=== PATIENT | female | born 1990 | race Caucasian/White ===

== ENCOUNTER 2024-02-12 11:40 | Emergency (ER) | payer MEDICAID, SELFPAY ==
--- NOTE | 2024-02-12 11:49 | XR_ITS ---
Examination: CT abdomen and pelvis without contrast. Coronal 3-D reconstructions. Sagittal 2-D reconstructions. Date and time of exam:February 12, 2024 1203 hours COMPARISON: December 04, 2023 INDICATIONS: Generalized abdominal pain and nausea today CTDI: vol (mGy): 23.8 DLP: (mGycm): 1574 Technique: Axial images of the abdomen have been obtained, 3 mm slice thickness Intravenous contrast material has not been administered. Low dose protocols were performed. One or more of the following dose reduction techniques were used; automated exposure control, adjustment of the mA and/or KV according to patient size, use of iterative reconstruction technique. Findings: Thickening of the gastric mucosa No focal liver or splenic lesion Absent gallbladder No pancreatic or adrenal mass Mild to moderate bilateral renal parenchymal scar formation Aorta normal size No bowel obstruction 10 mm fat-containing umbilical hernia Absent appendix No current colitis or enteritis pattern Anteverted uterus with no uterine or adnexal mass Contracted urinary bladder Mild osteopenia IMPRESSION: Gastritis pattern Mild to moderate renal parenchymal scar formation No nonspecific enteritis or colitis pattern
[2024-02-12 11:50] VITALS: BP 109/71; PULSE 95; RESP 18; TEMP 37.1; O2SAT 98
--- NOTE | 2024-02-12 12:03 | EDNOTE_ITS ---
ED Abdominal Pain RME/HPI General Chief Complaint: Fever Stated complaint: FEVER, ABD PAIN Time seen by provider: 02/12/24 11:45 Arrival date/time: 02/12/24 11:40 RME / HPI RME / HPI narrative: This section includes all my notes and documentations, including HPI, PE, MDM, Procedure Notes, and PLAN. Que Ron MD HPI: 33 year old female with a history of hypertension, diabetes, cervical cancer undergoing chemotherapy, s/p tubal ligation, recently diagnosed with ulcerative colitis presents to the ER with complaints of abdominal pain and feeling unwell for the past 24 hours. The abdominal pain is described as diffuse and crampy in nature, with no specific location or radiation. She reports a fever of 100.4F at home, along with nausea, but denies vomiting, diarrhea, or back pain. She notes that her last bowel movement was last night and was normal for her. She states that she last felt this way at the time of her ulcerative colitis diagnosis, and is concerned about a possible flare. She denies any recent changes in her diet or medications. No known sick contacts. No other complaints. ROS: Gastrointestinal: negative except as documented in HPI. Genitourinary: negative except as documented in HPI. Musculoskeletal: negative except as documented in HPI. Skin: negative except as documented in HPI. Neurological: negative except as documented in HPI. Physical Exam: General:? Alert and oriented.? No acute distress when remaining still. Eyes:? Conjunctivae and lids clear.? ENT:? No nasal congestion.? ? Neck:? Supple.? Heart:? RRR.? Lungs:? No respiratory distress.? Good air movement.? No rhonchi, wheezing, rales.?? Abdomen:? Soft mild epigastric tenderness.? Normal bowel sounds.? No distension.? No rebound or guarding.?? Back:? No CVA tenderness.?? Skin:? Warm and dry.?? Neuro:? Alert and oriented X 3.? I reviewed all diagnostic test results. My review of the abdominal CT report is gastritis. Blood tests unremarkable. At this point, diagnoses include gastritis. Prescribed famotidine and omeprazole and recommended more outpatient workup. Based on my best medical judgment, made decision no further evaluation or treatment indicated at this time. Patient understands and agrees to the discharge instructions customized and printed, see below. Discharge instructions from Dr. Ron: ?After evaluation, your symptoms are due to stomach ulcer (see attached handout).? There is no emergency such as appendicitis needing emergent surgery. ?To help heal the ulcer, take Omeprazole 40 mg every morning and Famotidine 40 mg at bedtime for 7 days then as needed. ?Zofran for nausea/vomiting.? Clear liquid diet for 24 hours.? Then slowly advance diet as tolerated. ?Avoid food and beverages that can trigger and worsen ulcers.? See attached handout. ?See a private doctor on 02/14/2024. Ask to review all test results and official radiology reports, to make sure you receive all necessary follow-ups and monitoring. Ask to help you get more care not available here in the ER.? Such as EGD or scoping the stomach, colonoscopy or scoping the colon, and a referral to see a welder assembler. ?Seek immediate medical care with worsening or with any concerns. Que Ron MD Related Data Home Medications ?Medication ?Instructions ?Recorded ?Confirmed metformin 500 mg tablet 500 mg PO BID 10/27/20 12/05/23 hydrochlorothiazide 12.5 mg tablet 12.5 mg PO QAM 11/08/22 12/05/23 lisinopril 10 mg tablet 10 mg PO QDAY 11/08/22 12/05/23 semaglutide 1 mg/dose (4 mg/3 mL) 1 mg subcut QWEEK 11/08/22 12/05/23 subcutaneous pen injector (Ozempic) atorvastatin 40 mg tablet 40 mg PO HS 12/05/23 12/05/23 Previous Rx's ?Medication ?Instructions ?Recorded aspirin 81 mg chewable tablet 81 mg PO QDAY #30 tabs 11/20/23 folic acid 1 mg tablet 1 mg PO QDAY 3 months #90 tabs 12/08/23 famotidine 40 mg tablet 40 mg PO QDAY #30 tabs 02/12/24 omeprazole 40 mg capsule,delayed 40 mg PO QDAY #30 caps 02/12/24 release ondansetron 4 mg disintegrating 4 mg PO TID PRN nausea and 02/12/24 tablet vomiting 5 days #10 tabs Allergies Allergy/AdvReac Type Severity Reaction Status Date / Time amoxicillin Allergy Severe Rash Verified 02/12/24 15:27 cephalexin Allergy Severe Rash Verified 02/12/24 15:27 adhesive tape Allergy Intermediate Rash Verified 02/12/24 15:27 bee venom protein (honey bee) Allergy Intermediate Anaphylaxis Verified 02/12/24 15:27 Review of Systems Review of Systems Systems Reviewed: All systems reviewed, normal except as documented Past Medical History Past Medical History CARDIAC: Positive Hypercholesterolemia and Hypertension RESPIRATORY: Positive Asthma GASTROINTESTINAL: Positive Gastrointestinal Disorders, Gall Bladder Disease and Obesity GENITOURINARY: Positive Genitourinary Disorders and Kidney Stones REPRODUCTIVE: Positive Previous Pregnancies ENDOCRINE: Positive Endocrine Disorders and Diabetes Mellitus Type 2 OTHER HISTORY: Positive Hospitalization, Blood Transfusions (per pt. 2014) and Cervical Cancer Family History FAMILY HISTORY: Positive Family Cardiac Disorders and Family Surgery Surgical History SURGICAL: Positive Arthroscopy, Tubal Ligation and Section Social History SMOKING STATUS: Never smoker SECOND HAND EXPOSURE: No SUBSTANCE USE: does not use ED Exam Narrative Physical exam: As noted in HPI Course Quality Measures none Orders Category Date Time Status CT abdomen pelvis wo con Stat Exams 02/12/24 11:49 Completed Amylase Stat Lab 02/12/24 11:58 Completed CBC Stat Lab 02/12/24 11:58 Completed CMP [Comprehensive Metabolic Panel] Stat Lab 02/12/24 11:58 Completed Lipase Stat Lab 02/12/24 11:58 Completed Magnesium Stat Lab 02/12/24 11:58 Completed Urine Culture Stat Lab 02/12/24 13:14 Ordered Vital Signs Vital signs: Vital Signs Temperature 98.8 F 02/12/24 11:50 Pulse Rate 95 02/12/24 11:50 Respiratory Rate 18 02/12/24 11:50 Blood Pressure 109/71 02/12/24 11:50 Pulse Oximetry (%) 98 02/12/24 11:50 Oxygen Delivery Method Room Air 02/12/24 11:50 Pulse ox is 98% on room air which is adequate. Abdominal Pain MDM MDM Narrative MDM Narrative:: Olga Ferrara am scribing for and in the presence of Dr. Ron. Patient data External records reviewed:: [facility] previous records (I reviewed admission from 12/04/2023 through 12/08/2023) Clinical information provided by:: patient Social determinants that could affect healthcare access:: none Patient has the following chronic illnesses:: hypertension, diabetes, cervical cancer undergoing chemotherapy, s/p tubal ligation, recently diagnosed with ulcerative colitis How is presenting disease/condition affected by chronic disease/condition?: exacerbated by Evaluation data The following diagnostics were reviewed and interpreted by me:: lab results and radiology exam(s) Lab and/or radiology exams considered but not ordered:: None Interpretation Summary: Gastritis Medications / Prescriptions Medications or Prescriptions considered but not ordered:: None Medication administrations:: None Consultations Consultation(s) initiated? (list below): No Diagnosis Differential diagnosis abdominal pain: abdominal pain, acute appendicitis, calculus of kidney, constipation, diverticulitis, endometriosis, gastroenteritis, pancreatitis, small bowel obstruction and other (Colitis) Most likely diagnosis given after review of the tests above:: Gastritis Admission Indicated Admission indicated?: not indicated Explain why admission is indicated or not indicated:: Does not meet admission criteria Admission Request Was there a request for admission?: No Disposition Plan Disposition Plan: Discharge Discharge Attestation Discharge Attestation: The patient and all family members were given an opportunity to ask questions and understood the discharge instructions. Discharge instructions specifically effects, indications for sooner follow up or return to the emergency department, and the expected course of current diagnosis. Patient condition: Stable Discharge Plan Plan Patient Disposition: HOME (Self Care) Prescriptions/Referrals Prescriptions/Med Rec: New famotidine 40 mg tablet 40 mg PO QDAY Qty: 30 0RF omeprazole 40 mg capsule,delayed release(DR/EC) 40 mg PO QDAY Qty: 30 0RF ondansetron 4 mg tablet,disintegrating 4 mg PO TID PRN (Reason: nausea and vomiting) 5 Days Qty: 10 0RF No Action metformin 500 mg Tablet 500 mg PO BID lisinopril 10 mg Tablet 10 mg PO QDAY hydrochlorothiazide 12.5 mg Tablet 12.5 mg PO QAM Ozempic 1 mg/dose (4 mg/3 mL) Pen Injector 1 mg SUBCUT QWEEK aspirin 81 mg tablet,chewable 81 mg PO QDAY Qty: 30 0RF atorvastatin 40 mg tablet 40 mg PO HS folic acid 1 mg Tablet 1 mg PO QDAY 90 Days Qty: 90 0RF Referrals: Mandy Negro FNP [Primary Care Provider] - In 1 week Problem List Clinical Impression: Stomach ulcer Patient/Caregiver Discharge Instructions Discharge Activity: activity as tolerated Education Materials: ED PEPTIC ULCER vs GASTRITIS Additional Instructions: Discharge instructions from Dr. Ron: ?After evaluation, your symptoms are due to stomach ulcer (see attached handout).? There is no emergency such as appendicitis needing emergent surgery. ?To help heal the ulcer, take Omeprazole 40 mg every morning and Famotidine 40 mg at bedtime for 7 days then as needed. ?Zofran for nausea/vomiting.? Clear liquid diet for 24 hours.? Then slowly adva nce diet as tolerated. ?Avoid food and beverages that can trigger and worsen ulcers.? See attached handout. ?See a private doctor on 02/14/2024. Ask to review all test results and official radiology reports, to make sure you receive all necessary follow-ups and monitoring. Ask to help you get more care not available here in the ER.? Such as EGD or scoping the stomach, colonoscopy or scoping the colon, and a referral to see a welder assembler. ?Seek immediate medical care with worsening or with any concerns. Print Language: Guinean Stand Alone Forms: Irish Award Info., Patient Portal Info Letter
[2024-02-12 12:28] LABS: Basophils # (Auto) 0.1 Thou/mm3 (0.0-0.2); Basophils % (Auto) 1 % (0-2.5); Eosinophils # (Auto) 0.1 Thou/mm3 (0.0-0.5); Eosinophils % (Auto) 1 % (0-10); Hematocrit 39.4 % (36.0-46.0); Hemoglobin 12.6 g/dL (12.0-16.0); Immature Granulocytes % (Auto) 0 % (0-0); Immature Granulocytes Auto 0.02 Thou/mm3 (0.00-0.00); Lymphocytes # (Auto) 2.3 Thou/mm3 (1.0-4.8); Lymphocytes % (Auto) 30 % (10-50); Mean Corpuscular Volume 84 fL (80-100); Monocytes # (Auto) 0.4 Thou/mm3 (0.0-0.8); Monocytes % (Auto) 5 % (0-12); Neutrophils # (Auto) 4.9 Thou/mm3 (1.8-7.7); Neutrophils % (Auto) 64 % (37-80); Nucleated Red Blood Cell % 0 /100 WBC (0); Platelet Count 303 Thou/mm3 (140-440); RDW Standard Deviation 45.4 fL (36.4-46.3); Red Blood Count 4.67 Miln/mm3 (4.00-5.20); White Blood Count 7.7 Thou/mm3 (3.6-11.0)
[2024-02-12 12:51] LABS: Alanine Aminotransferase 15 U/L (10-49); Albumin, Serum 4.6 gm/dL (3.5-5.0); Albumin/Globulin Ratio 1.8 (1.2-2.2); Alkaline Phosphatase 71 U/L (46-116); Amylase 74 U/L (30-118); Anion Gap 6 (7-16); Aspartate Amino Transferase 11 U/L (0-34); BUN/Creatinine Ratio 11 Ratio (12-20); Bilirubin,Total 0.6 mg/dL (0.3-1.2); Blood Urea Nitrogen 9 mg/dL (9-23); Carbon Dioxide 25.2 mMol/L (20.0-31.0); Chloride 108 mMol/L (98-107); Creatinine (Component) 0.8 mg/dL (0.6-1.3); Globulin 2.5 gm/dL (2.3-3.5); Glucose 102 mg/dL (74-106); Lipase 37 U/L (12-53); Magnesium 1.9 mg/dL (1.6-2.6); Osmolality,Calculated 276 (275-295); Sodium 139 mMol/L (136-145); Total Protein 7.1 gm/dL (5.7-8.2); eGFR > 60 See Note
== END 2024-02-12 13:52 | disposition home or self-care (01) ==
PROVIDERS: Emergency Provider Emergency Medicine; PCP Nurse Practitioner
DX: K25.9 Gastric ulcer, unspecified as acute or chronic, without hemorrhage or perforation (principal); C53.9 Malignant neoplasm of cervix uteri, unspecified; I10 Essential (primary) hypertension; E11.9 Type 2 diabetes mellitus without complications; Z98.51 Tubal ligation status; K51.90 Ulcerative colitis, unspecified, without complications
CPT/HCPCS: 36415; 74176; 80053; 82150; 83690; 83735; 85025; 87086; 99284

== ENCOUNTER 2024-03-25 12:15 | Day surgery (SDC) | payer MEDICAID, SELFPAY ==
[2024-02-12 15:28] VITALS: BMI 52.9
[2024-02-13 09:00] VITALS: BP 130/84; PULSE 94; RESP 19; TEMP 36.8; O2SAT 97; BMI 52.9
--- NOTE | 2024-02-13 09:19 | SUR.PREOP ---
pt cancelled per dr tobin. pt to call for reschedule for mar 11.
[2024-03-24 13:50] VITALS: BMI 53.7
[2024-03-24 17:12] LABS: Alanine Aminotransferase 15 U/L (10-49); Albumin, Serum 4.5 gm/dL (3.5-5.0); Albumin/Globulin Ratio 1.7 (1.2-2.2); Alkaline Phosphatase 86 U/L (46-116); Anion Gap 8 (7-16); Aspartate Amino Transferase 11 U/L (0-34); BUN/Creatinine Ratio 16 Ratio (12-20); Bilirubin,Total 0.4 mg/dL (0.3-1.2); Blood Urea Nitrogen 14 mg/dL (9-23); Calcium 9.3 mg/dL (8.3-10.6); Calcium (Corrected) 9.3 mg/dL (8.5-10.1); Carbon Dioxide 26.4 mMol/L (20.0-31.0); Chloride 105 mMol/L (98-107); Creatinine (Component) 0.9 mg/dL (0.6-1.3); Estimated Creatinine Clearance 140.5 mL/min (>60); Globulin 2.7 gm/dL (2.3-3.5); Glucose 92 mg/dL (74-106); Osmolality,Calculated 278 (275-295); Sodium 139 mMol/L (136-145); Total Protein 7.2 gm/dL (5.7-8.2); eGFR > 60 See Note
[2024-03-25] VITALS (14 sets, daily range): BP systolic 98–141; BP diastolic 71–107; PULSE 79–94; RESP 12–16; TEMP 36.2–36.9; O2SAT 95–100; BMI 52.9
[2024-03-25] MEDS: RINGERS LACTATED 500 ML 500 ML 20 ML IV (15:05)
--- NOTE | 2024-03-25 15:41 | SUR.PHASEII ---
1541: Pt. AAOx4, vitals stable, breathing unlabored, no complaint of pain or nausea, no dressing in place, no active bleed noted, report received from Meagan MONTEJO and MD Musa.
[2024-03-25] MEDS: ONDANSETRON INJ 2 MG/ML INJ 2 ML 4 MG IV (16:09)
--- NOTE | 2024-03-25 16:30 | SUR.PHASEII ---
1630: Gave report to Che Montalvo RN to resume care of pt. Pt. has some redness to cheeks and chest, waiting for MD Musa to assess pt. to see if she is ok to go home. Pt. passed gas, pt. ate some ice chips and bites of jello, gave discharge instructions to the pt. and her ride, both verbalized understanding and had no further questions.
--- NOTE | 2024-03-25 16:30 | SUR.PHASEII ---
8981 report received from Haylie MONTEJO
--- NOTE | 2024-03-25 16:31 | SUR.PHASEII ---
3727 anesthesia provider at bedside assessed patient due to previous RN assessing redness to face and upper chest, redness has subsided, anesthesia provider shared patient was okay to discharge home
--- NOTE | 2024-03-25 16:48 | SUR.PHASEII ---
0512 anesthesia provider medicated patient Zofran 4mg via IV, will monitor patients nausea
--- NOTE | 2024-03-25 16:56 | SUR.PHASEII ---
1749 patient continued to be nausea, anesthesia provider medicated patient with Reglan 10mg via IV, will monitor patient
[2024-03-25] MEDS: PROMETHAZINE INJ 12.5 MG in SODIUM CHLORIDE 0.9% 50 ML 2.5 MG IV (17:38)
--- NOTE | 2024-03-25 18:10 | SUR.PHASEII ---
1715 Dr. Musa at bedside assessing patient, patient continued to be nausea, dry heaving and shares she doesn't feel good, Dr. Musa states he would place an order for addition medication 1738 Phenergan 12.5mg via IV started per anesthesia order, will monitor patient 1800 medication administration completed, 1810 patient tolerating ice chips, will proceed with discharge
--- NOTE | 2024-03-25 18:20 | SUR.PHASEII ---
1820 Patient meets discharge criteria from recovery, awake and alert, breathing unlabored, vital signs stable, denies pain, patient eating ice chips with her nausea at a tolerable level, patient able to dress herself into her clothing, discharge instructions given to patient and her by previous nurse, patient voided in restroom prior to discharge, patient given all her belongings prior to discharge, transported via wheelchair and left in a private vehicle.
== END 2024-03-25 18:20 | disposition home or self-care (01) ==
LOC: S2EX 19:14
PROVIDERS: Anesthesiology; PCP Nurse Practitioner; Referring Provider Internal Medicine Gastroenterology; Visit Provider Internal Medicine Gastroenterology
PROC: 0DJD8ZZ Inspection of Lower Intestinal Tract, Via Natural or Artificial Opening Endoscopic (ICD-10-PCS; CPT 45378; principal; 2024-03-25 13:30)
PROC: (CPT 43239; 2024-03-25 13:30)
DX: D12.5 Benign neoplasm of sigmoid colon (principal); B96.81 Helicobacter pylori [H. pylori] as the cause of diseases classified elsewhere; K52.9 Noninfective gastroenteritis and colitis, unspecified; K64.9 Unspecified hemorrhoids; K62.1 Rectal polyp; K31.89 Other diseases of stomach and duodenum; K29.50 Unspecified chronic gastritis without bleeding
CPT/HCPCS: 45380; 36415; 80053; A4217; J2250; J2405; J2550; J2704; J3010; J3490; J7120

== ENCOUNTER 2024-04-20 14:06 | Emergency (ER) | payer MEDICAID, SELFPAY ==
[2024-04-20 14:07] VITALS: BMI 53.2
[2024-04-20 14:40] VITALS: BP 111/78; PULSE 98; RESP 18; TEMP 36.9; O2SAT 99
--- NOTE | 2024-04-20 14:45 | XR_ITS ---
Examination: PA lateral chest 2 views Technique: Upright PA lateral chest 2 views Exam date and time: April 20, 2024 1459 hrs. Indications: Shortness of breath chest pain one week, positive for RSV Findings: Normal heart size Lungs are clear. The osseous structures are intact Impression: No active disease
--- NOTE | 2024-04-20 15:23 | PD.EDSOB ---
ED SOB =RME/HPI General Chief Complaint: Shortness of Breath/Dyspnea Stated Complaint: DIFFICULTY BREATHING; +RSV ON SATURDAY Time Seen by Provider: 04/20/24 14:45 Arrival date/time: 04/20/24 14:06 34-year-old female presents to emergency department today saying that she is been ill since last Saturday with cough, congestion, runny nose and bodyaches patient reports that she had an RSV test done on Saturday which came back positive which she got her results for on Saturday. Patient reports no chest pain no shortness of breath patient does report cough and congestion Limitations: no limitations Related Data Home Medications ?Medication ?Instructions ?Recorded ?Confirmed hydrochlorothiazide 12.5 mg tablet 25 mg PO QAM 11/08/22 03/25/24 lisinopril 10 mg tablet 10 mg PO QDAY 11/08/22 03/25/24 omeprazole 40 mg capsule,delayed 20 mg PO QDAY 03/24/24 03/24/24 release Previous Rx's ?Medication ?Instructions ?Recorded benzonatate 100 mg capsule 100 mg PO TID #14 caps 04/20/24 prednisone 10 mg tablet 30 mg (3 x 10 mg) PO BID 3 days 04/20/24 #18 tabs Allergies Allergy/AdvReac Type Severity Reaction Status Date / Time amoxicillin Allergy Severe Rash Verified 04/20/24 14:11 cephalexin Allergy Severe Rash Verified 04/20/24 14:11 adhesive tape Allergy Intermediate Rash Verified 04/20/24 14:11 bee venom protein (honey bee) Allergy Intermediate Anaphylaxis Verified 04/20/24 14:11 Review of Systems Review of Systems Systems Reviewed: All systems reviewed, normal except as documented Constitutional Constitutional: Reports system reviewed and no additional complaints, except as documented, Denies fever(s) and Denies headache(s) Eyes Eyes: Reports system reviewed and no additional complaints, except as documented and Denies blurry vision ENT Ears, Nose, Mouth, and Throat: Reports system reviewed and no additional complaints, except as documented, Denies headache(s), Denies nasal congestion and Denies nasal discharge Cardiovascular Cardiovascular: Reports system reviewed and no additional complaints, except as documented, Denies chest pain and Denies dyspnea Respiratory Respiratory: Reports system reviewed and no additional complaints, except as documented, Reports chest congestion, Reports cough and Denies dyspnea Gastrointestinal Gastrointestinal: Reports system reviewed and no additional complaints, except as documented and Denies abdominal pain Integumentary/Breasts Skin/Breast: Reports system reviewed and no additional complaints, except as documented and Denies rash Neurologic Neurologic: Reports system reviewed and no additional complaints, except as documented, Reports as per HPI and Denies headache(s) Past Medical History Past Medical History NEUROLOGIC: Positive Neurological Disorders and Transient Ischemic Attacks (TIA); Negative Seizures CARDIAC: Positive Cardiac Disorders and Hypertension; Negative Hypercholesterolemia or Congestive Heart Failure RESPIRATORY: Positive Asthma; Negative Chronic Obstructive Pulmonary Disease (COPD) GASTROINTESTINAL: Positive Gastrointestinal Disorders, Gall Bladder Disease, Colitis, Ulcerative Colitis, Ulcer and Obesity; Negative Hepatitis or Colorectal Cancer GENITOURINARY: Positive Kidney Stones; Negative Genitourinary Disorders, Renal Disease or Prostate Cancer REPRODUCTIVE: Positive Previous Pregnancies; Negative Breast Cancer or Testicular Cancer MUSCULOSKELETAL: Positive Musculoskeletal Disorders and Arthritis; Negative Bone Cancer ENDOCRINE: Positive Endocrine Disorders and Diabetes Mellitus Type 2 (pre); Negative Diabetes Mellitus Type 1 HEMATOLOGIC: Negative Blood Disorders, Anemia or Sickle Cell Disease PSYCHO/SOCIAL: Positive Anxiety OTHER HISTORY: Positive Hospitalization; Negative Autoimmune Disease, Down Syndrome, Developmental Delay, Shingles, Falls, Blood Transfusions, Blood Transfusion Reaction, Anesthesia Reactions, Organ Transplant, Chemotherapy, Radiation Therapy, Hyperbaric Therapy, MRSA, VRSA, Vancomycin-Resistant Enterococci, Human Immunodeficiency Virus (HIV), Chicken Pox, Measles, Mumps, Rubella ([place] Measles), Pertussis, Clostridium Difficile, Cancer, Breast Cancer, Cervical Cancer, Colorectal Cancer, Lung Cancer, Ovarian Cancer, Prostate Cancer or Testicular Cancer Family History FAMILY HISTORY: Positive Family Cardiac Disorders and Family Surgery; Negative Family Psychiatric Problems, Family Respiratory Disorders, Family Gastrointestinal Problems, Family Cancer or Family Anesthesia Reaction Surgical History SURGICAL: Positive Arthroscopy (right knee x2), Tubal Ligation and Section (x3); Negative Organ Transplant Social History SMOKING STATUS: Never smoker SECOND HAND EXPOSURE: No SUBSTANCE USE: does not use ED Exam General Limitations: Present no limitations General appearance: Present alert and in no apparent distress Head Head exam: Present atraumatic, normocephalic and normal inspection Eye Eye exam: Present normal appearance, PERRL and EOMI; Absent conjunctival injection ENT ENT exam: Present normal exam, normal oropharynx and mucous membranes moist Neck Neck exam: Present normal inspection, full ROM and trachea midline Chest Chest inspection: Present normal inspection and symmetric chest wall rise Respiratory Respiratory exam: Present normal lung sounds bilaterally; Absent respiratory distress, wheezes, stridor, accessory muscle use or prolonged expiratory phase Cardiovascular Cardiovascular exam: Present regular rate, normal rhythm and normal heart sounds Abdominal Exam Abdominal exam: Present soft and normal bowel sounds; Absent distention, tenderness, guarding, rebound or rigidity Extremities Exam Extremities exam: Present normal inspection and full ROM Back Exam Back exam: Present normal inspection and full ROM Neurological Exam Neurological exam: Present alert, oriented X3 and CN II-XII intact Psychiatric Psychiatric exam: Present normal affect and normal mood Skin Skin exam: Present warm, dry, intact and normal color Course Quality Measures none Orders Category Date Time Status XR chest 2V Stat Exams 04/20/24 14:45 Completed Vital Signs Vital signs: Vital Signs Temperature 98.5 F 04/20/24 14:40 Pulse Rate 98 04/20/24 14:40 Respiratory Rate 18 04/20/24 14:40 Blood Pressure 111/78 04/20/24 14:40 Pulse Oximetry (%) 99 04/20/24 14:40 Oxygen Delivery Method Room Air 04/20/24 14:40 O2 saturation 99% room air within normal limits Shortness of Breath / Dyspnea MDM Narrative MDM Narrative:: 34-year-old female presents to the emergency department today saying that she is been ill since last Saturday with cough, congestion, runny nose and bodyaches patient reports that she had an RSV test done on Saturday which came back positive which she got her results for on Saturday. Patient reports no chest pain no shortness of breath patient does report cough and congestion Clinically patient is well-appearing patient does not appear ill or toxic and in no acute distress patient is no tachypnea or dyspnea no increased work of breathing lungs auscultated lungs are clear to auscultation Chest x-ray obtained no acute pneumonic infiltrates noted Patient discharged home in no distress to follow-up with primary care doctor in the next 24 to 48 hours and for any worsening symptoms to return to the ER immediately Patient data External records reviewed:: [facility] previous records Clinical information provided by:: patient Social determinants that could affect healthcare access:: none Patient has the following chronic illnesses:: See history How is presenting disease/condition affected by chronic disease/condition?: uneffected by Evaluation data The following diagnostics were reviewed and interpreted by me:: radiology exam(s) Lab and/or radiology exams considered but not ordered:: Radiology obtain Interpretation Summary: Reviewed by me Medications / Prescriptions Medications or Prescriptions considered but not ordered:: Given Rx Medication administrations:: Rx given Consultations Consultation(s) initiated? (list below): No Diagnosis Shortness of Breath Differential Diagnosis: acute exacerbation of chronic obstructive airways disease, congestive heart failure, community acquired pneumonia, asthma with exacerbation and pulmonary embolism Most likely diagnosis given after review of the tests above:: URI Admission Indicated Admission indicated?: not indicated Admission Request Was there a request for admission?: No Disposition Plan Disposition Plan: Discharge Discharge Attestation Discharge Attestation: The patient and all family members were given an opportunity to ask questions and understood the discharge instructions. Discharge instructions specifically effects, indications for sooner follow up or return to the emergency department, and the expected course of current diagnosis. Patient condition: Stable Discharge Plan Plan Patient Disposition: HOME (Self Care) Disposition Comment: Stable Prescriptions/Referrals Prescriptions/Med Rec: New prednisone 10 mg tablet 30 mg PO BID 3 Days Qty: 18 0RF benzonatate 100 mg capsule 100 mg PO TID Qty: 14 0RF No Action lisinopril 10 mg Tablet 10 mg PO QDAY hydrochlorothiazide 12.5 mg Tablet 25 mg PO QAM omeprazole 40 mg capsule,delayed release(DR/EC) 20 mg PO QDAY Problem List Clinical Impression: Upper respiratory infection Patient/Caregiver Discharge Instructions Education Materials: ED URI, Viral, No Abx (Adult) Additional Instructions: Please follow up with your primary care doctor in the next 24-48hrs for any worsening symptoms return here immediately Print Language: Maltese Stand Alone Forms: Irish Award Info., Patient Portal Info Letter CASIE/NORMA Supervising Physician PA/NORMA Supervising Physician: dr polanco
== END 2024-04-20 15:30 | disposition home or self-care (01) ==
LOC: SERX 15:32
PROVIDERS: Emergency Provider Emergency Medicine; PCP Nurse Practitioner
DX: J06.9 Acute upper respiratory infection, unspecified (principal)
CPT/HCPCS: 71046; 99283

== ENCOUNTER 2024-05-14 13:48 | Emergency (ER) | payer MEDICAID, SELFPAY ==
[2024-05-14 13:49] VITALS: BMI 54.8
[2024-05-14 14:11] VITALS: BP 134/85; PULSE 118; RESP 20; TEMP 37.4; O2SAT 99
--- NOTE | 2024-05-14 14:13 | EKG_ITS ---
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
--- NOTE | 2024-05-14 14:13 | XR_ITS ---
Examination: PA chest single view. Technique: Upright PA chest single view Exam date and time: May 14, 2024 1455 hrs. Indications: History pneumonia on chest pain coughing last night. Findings: Normal heart size Subtle opacity left base retrocardiac Right lung clear Impression: Suspicious for left base retrocardiac pneumonia, clinical correlation advised
--- NOTE | 2024-05-14 14:14 | EDNOTE_ITS ---
<Statement entered by Cathy Jimenez MD - 05/14/24 16:08> As co-signing physician, I was present and available for consult prn. I concur with the plan and care as documented by the midlevel provider. ED General RME/HPI General Chief complaint: Chest Pain Stated complaint: CHEST PAIN Time Seen by Provider: 05/14/24 14:15 Arrival date/time: 05/14/24 13:48 CC: Left anterior site-specific chest pain HPI intermittent since early this morning no prior history of similar present denies shortness of breath difficulty breathing headache nausea vomiting or diarrhea. No OTC medicines taken currently the pain is absent Related Data Home Medications ?Medication ?Instructions ?Recorded ?Confirmed hydrochlorothiazide 12.5 mg tablet 25 mg PO QAM 03/25/24 lisinopril 10 mg tablet 10 mg PO QDAY 11/08/2203/25 omeprazole 40 mg capsule,delayed 20 mg PO QDAY 5 03/24/24 release Previous Rx's ?Medication ?Instructions ?Recorded benzonatate 100 mg capsule 100 mg PO TID #14 caps 04/04 09/25 Allergies Allergy/AdvReac Type Severity Reaction Status Date / Time amoxicillin Allergy Severe Rash Verified 05/14/24 13:52 cephalexin Allergy Severe Rash Verified 05/14/24 13:52 adhesive tape Allergy Intermediate Rash Verified 05/14/24 13:52 bee venom protein (honey bee) Allergy Intermediate Anaphylaxis Verified 05/14/24 13:52 Review of Systems Review of Systems Narrative Review of Systems: GEN: No fever, no chills, no weight loss EYES: No discharge, no visual changes, no pain HEENT: No ear pain, no congestion, no sore throat PULM: No shortness of breath, no cough, no congestion CV: + chest pain, no dyspnea on exertion, no palpitations GI: No nausea, no vomiting, no diarrhea, no pain, no constipation : No frequency, no urgency, no dysuria MUSC/SKEL: No joint pain, no back pain SKIN: No rash PSYCH: No hallucinations, no depression HEME/LYMPH: No easy bleeding or bruising tendencies NEURO: No weakness, no headache Past Medical History Past Medical History NEUROLOGIC: Positive Neurological Disorders and Transient Ischemic Attacks (TIA); Negative Seizures CARDIAC: Positive Cardiac Disorders and Hypertension; Negative Hypercholesterolemia or Congestive Heart Failure RESPIRATORY: Positive Asthma; Negative Chronic Obstructive Pulmonary Disease (COPD) GASTROINTESTINAL: Positive Gastrointestinal Disorders, Gall Bladder Disease, Colitis, Ulcerative Colitis, Ulcer and Obesity; Negative Hepatitis or Colorectal Cancer GENITOURINARY: Positive Kidney Stones; Negative Genitourinary Disorders, Renal Disease or Prostate Cancer REPRODUCTIVE: Positive Previous Pregnancies; Negative Breast Cancer or Testicular Cancer MUSCULOSKELETAL: Positive Musculoskeletal Disorders and Arthritis; Negative Bone Cancer ENDOCRINE: Positive Endocrine Disorders and Diabetes Mellitus Type 2 (pre); Negative Diabetes Mellitus Type 1 HEMATOLOGIC: Negative Blood Disorders, Anemia or Sickle Cell Disease PSYCHO/SOCIAL: Positive Anxiety OTHER HISTORY: Positive Hospitalization; Negative Autoimmune Disease, Down Syndrome, Developmental Delay, Shingles, Falls, Blood Transfusions, Blood Transfusion Reaction, Anesthesia Reactions, Organ Transplant, Chemotherapy, Radiation Therapy, Hyperbaric Therapy, MRSA, VRSA, Vancomycin-Resistant Enterococci, Human Immunodeficiency Virus (HIV), Chicken Pox, Measles, Mumps, Rubella (Nepali Measles), Pertussis, Clostridium Difficile, Cancer, Breast Cancer, Cervical Cancer, Colorectal Cancer, Lung Cancer, Ovarian Cancer, Prostate Cancer or Testicular Cancer Family History FAMILY HISTORY: Positive Family Cardiac Disorders and Family Surgery; Negative Family Psychiatric Problems, Family Respiratory Disorders, Family Gastrointestinal Problems, Family Cancer or Family Anesthesia Reaction Surgical History SURGICAL: Positive Arthroscopy (right knee x2), Tubal Ligation and Section (x3); Negative Organ Transplant Social History SMOKING STATUS: Never smoker SECOND HAND EXPOSURE: No SUBSTANCE USE: does not use ED Exam Narrative Physical exam: [General: Morbidly obese anxious, but not in any acute distress Head normocephalic HEENT: Within acceptable limits Neck is supple nontender Chest equal chest rise nontender to palpation Respiratory: Clear to auscultation no wheezes crackles or rubs CV: Rate rhythm is regular no murmurs rubs or clicks Abdomen is grossly distended secondary to body habitus soft nontender no masses positive bowel sounds all 4 quadrants Back: No CVA tenderness no spinous process tenderness from cervical spine thoracic and lumbar spine Skin: Intact no petechiae rash induration ulceration or crepitus Extremities: Moving all extremity against resistance cap refill less than 2 seconds neurosensory intact Neuro: Awake alert oriented x3 Glascow coma 15 no focal deficits] Course Quality Measures none Orders Category Date Time Status EKG (ED ONLY) *Do not use* NOW Care 05/14/24 14:13 Completed EKG (ED Only) Stat Exams 05/14/24 14:13 Draft XR chest 1V Stat Exams 05/14/24 14:13 Taken Vital Signs Vital signs: Vital Signs Temperature 99.4 F 05/14/24 14:11 Pulse Rate 118 H 05/14/24 14:11 Respiratory Rate 20 05/14/24 14:11 Blood Pressure 134/85 H 05/14/24 14:11 Pulse Oximetry (%) 99 05/14/24 14:11 Oxygen Delivery Method Room Air 05/14/24 14:11 [facility] Patient data External records reviewed:: [facility] previous records Clinical information provided by:: patient Social determinants that could affect healthcare access:: none Patient has the following chronic illnesses:: Morbid obesity How is presenting disease/condition affected by chronic disease/condition?: uneffected by Evaluation data The following diagnostics were reviewed and interpreted by me:: radiology exam(s) and EKG tracing(s) Lab and/or radiology exams considered but not ordered:: EKG performed at 14 3023 shows a ventricular rate of 118 MN interval 129 QRS of 82 QTc of 287 this is a tachycardia Chest x-ray is negative for any acute finding requires emergent or immediate intervention as interpreted by me. Interpretation Summary: Chest pain Medications Medications considered but not ordered:: None Medication administrations:: None Consultations Consultation(s) initiated? (list below): No Diagnosis Differential Diagnosis ED Complaint MDM: ACS [place] pneumonia Most likely diagnosis given after review of the tests above:: Chest pain probable long car Admission Indicated Admission indicated?: not indicated Explain why admission is indicated or not indicated:: Stable for outpatient follow-up Admission Request Was there a request for admission?: No Disposition Plan Disposition Plan: Discharge Discharge Attestation Discharge Attestation: The patient and all family members were given an opportunity to ask questions and understood the discharge instructions. Discharge instructions specifically effects, indications for sooner follow up or return to the emergency department, and the expected course of current diagnosis. Patient condition: Stable Medical Decision Making Differential Diagnosis Differential Diagnosis: ACS [place] pneumonia Discharge Plan Plan Patient Disposition: HOME (Self Care) Patient condition on transfer: Stable Prescriptions/Referrals Prescriptions/Med Rec: No Action lisinopril 10 mg Tablet 10 mg PO QDAY hydrochlorothiazide 12.5 mg Tablet 25 mg PO QAM omeprazole 40 mg capsule,delayed release(DR/EC) 20 mg PO QDAY benzonatate 100 mg capsule 100 mg PO TID Qty: 14 0RF Referrals: Mandy Negro FNP [Primary Care Provider] - In 1 week Problem List Clinical Impression: Chest pain Patient/Caregiver Discharge Instructions Other Activity Instructions:: This chest pain is more than likely not cardiac related. I I suspect it is in the chest wall. Take ibuprofen or Tylenol for pain follow-up with your primary care provider if there is worsening of symptoms return the emergency room medially for further evaluation. Education Materials: ED Chest Pain, Noncardiac Print Language: Indonesian Stand Alone Forms: Irish Award Info., Work/School Release, Patient Portal Info Letter CASIE/NORMA Supervising Physician CASIE/NORMA Supervising Physician: Syed Guillen ENP
== END 2024-05-14 16:33 | disposition home or self-care (01) ==
PROVIDERS: Emergency Provider Emergency Medicine; PCP Nurse Practitioner
DX: R07.89 Other chest pain (principal)
CPT/HCPCS: 71045; 93005; 99283

== ENCOUNTER → 2024-05-27 | Outpatient (CLI) | payer MEDICAID, SELFPAY ==
--- NOTE | 2024-05-27 11:41 | XR_ITS ---
Examination: PA lateral chest 2 views TECHNIQUE: Upright PA lateral chest 2 views Exam date and time: May 27, 2024 at 1157 hours Comparison May 14, 2024 INDICATIONS: Coughing shortness of breath, history pneumonia left base on chest film May 14, 2024 FINDINGS: Pneumonia left base has cleared No current pneumonia Normal heart size IMPRESSION: Pneumonia left base has cleared
== END | disposition home or self-care (01) ==
LOC: SDIM 11:30
PROVIDERS: PCP Nurse Practitioner; Referring Provider Nurse Practitioner; Visit Provider Nurse Practitioner
DX: J18.9 Pneumonia, unspecified organism (principal); R05.3 Chronic cough
CPT/HCPCS: 71046

== ENCOUNTER 2024-05-28 10:02 | Emergency (ER) | payer MEDICAID, SELFPAY ==
[2024-05-28 10:26] VITALS: BP 137/88; PULSE 88; RESP 18; TEMP 36.8; O2SAT 96; BMI 54.8
--- NOTE | 2024-05-28 10:29 | PD.EDLOWEX ---
Lower Extremity Injury RME/HPI General Chief Complaint: Extremity Injury, Lower Stated Complaint: LEFT HIP SWELLING Time Seen by Provider: 05/28/24 10:15 Arrival date/time: 05/28/24 10:02 34-year-old female presents to the emergency department day for complaints of a bruise to her left upper leg patient does not remember any direct trauma patient is ambulatory Limitations: no limitations Related Data Home Medications ?Medication ?Instructions ?Recorded ?Confirmed hydrochlorothiazide 12.5 mg tablet 25 mg PO QAM 11/08/22 03/25/24 lisinopril 10 mg tablet 10 mg PO QDAY 11/08/22 03/25/24 omeprazole 40 mg capsule,delayed 20 mg PO QDAY 03/24/24 03/24/24 release Previous Rx's ?Medication ?Instructions ?Recorded benzonatate 100 mg capsule 100 mg PO TID #14 caps 04/20/24 ibuprofen 800 mg tablet 800 mg PO TID PRN pain #30 tabs 05/28/24 Allergies Allergy/AdvReac Type Severity Reaction Status Date / Time amoxicillin Allergy Severe Rash Verified 05/28/24 10:06 cephalexin Allergy Severe Rash Verified 05/28/24 10:06 adhesive tape Allergy Intermediate Rash Verified 05/28/24 10:06 bee venom protein (honey bee) Allergy Intermediate Anaphylaxis Verified 05/28/24 10:06 Review of Systems Review of Systems Systems Reviewed: All systems reviewed, normal except as documented Constitutional Constitutional: Reports system reviewed and no additional complaints, except as documented, Denies fever(s) and Denies headache(s) Eyes Eyes: Reports system reviewed and no additional complaints, except as documented and Denies blurry vision ENT Ears, Nose, Mouth, and Throat: Reports system reviewed and no additional complaints, except as documented, Denies headache(s), Denies nasal congestion and Denies nasal discharge Cardiovascular Cardiovascular: Reports system reviewed and no additional complaints, except as documented, Denies chest pain and Denies dyspnea Respiratory Respiratory: Reports system reviewed and no additional complaints, except as documented, Denies chest congestion, Denies cough and Denies dyspnea Gastrointestinal Gastrointestinal: Reports system reviewed and no additional complaints, except as documented and Denies abdominal pain Integumentary/Breasts Skin/Breast: Reports system reviewed and no additional complaints, except as documented, Denies rash and Reports other (Bruise left leg) Neurologic Neurologic: Reports system reviewed and no additional complaints, except as documented, Reports as per HPI and Denies headache(s) Past Medical History Past Medical History NEUROLOGIC: Positive Neurological Disorders and Transient Ischemic Attacks (TIA); Negative Seizures CARDIAC: Positive Cardiac Disorders and Hypertension; Negative Hypercholesterolemia or Congestive Heart Failure RESPIRATORY: Positive Asthma; Negative Chronic Obstructive Pulmonary Disease (COPD) GASTROINTESTINAL: Positive Gastrointestinal Disorders, Gall Bladder Disease, Colitis, Ulcerative Colitis, Ulcer and Obesity; Negative Hepatitis or Colorectal Cancer GENITOURINARY: Positive Kidney Stones; Negative Genitourinary Disorders, Renal Disease or Prostate Cancer REPRODUCTIVE: Positive Previous Pregnancies; Negative Breast Cancer or Testicular Cancer MUSCULOSKELETAL: Positive Musculoskeletal Disorders and Arthritis; Negative Bone Cancer ENDOCRINE: Positive Endocrine Disorders and Diabetes Mellitus Type 2 (pre); Negative Diabetes Mellitus Type 1 HEMATOLOGIC: Negative Blood Disorders, Anemia or Sickle Cell Disease PSYCHO/SOCIAL: Positive Anxiety OTHER HISTORY: Positive Hospitalization; Negative Autoimmune Disease, Down Syndrome, Developmental Delay, Shingles, Falls, Blood Transfusions, Blood Transfusion Reaction, Anesthesia Reactions, Organ Transplant, Chemotherapy, Radiation Therapy, Hyperbaric Therapy, MRSA, VRSA, Vancomycin-Resistant Enterococci, Human Immunodeficiency Virus (HIV), Chicken Pox, Measles, Mumps, Rubella (Amharic Measles), Pertussis, Clostridium Difficile, Cancer, Breast Cancer, Cervical Cancer, Colorectal Cancer, Lung Cancer, Ovarian Cancer, Prostate Cancer or Testicular Cancer Family History FAMILY HISTORY: Positive Family Cardiac Disorders and Family Surgery; Negative Family Psychiatric Problems, Family Respiratory Disorders, Family Gastrointestinal Problems, Family Cancer or Family Anesthesia Reaction Surgical History SURGICAL: Positive Arthroscopy (right knee x2), Tubal Ligation and Section (x3); Negative Organ Transplant Social History SMOKING STATUS: Never smoker SECOND HAND EXPOSURE: No SUBSTANCE USE: does not use ED Exam General Limitations: Present no limitations General appearance: Present alert and in no apparent distress Head Head exam: Present atraumatic Eye Eye exam: Present normal appearance, PERRL and EOMI ENT ENT exam: Present normal exam, normal oropharynx and mucous membranes moist Neck Neck exam: Present normal inspection, full ROM and trachea midline Chest Chest inspection: Present normal inspection and symmetric chest wall rise Respiratory Respiratory exam: Present normal lung sounds bilaterally Cardiovascular Cardiovascular exam: Present regular rate, normal rhythm and normal heart sounds Abdominal Exam Abdominal exam: Present soft and normal bowel sounds Extremities Exam Extremities exam: Present full ROM, tenderness, normal capillary refill and other (Superficial bruise left upper leg) Back Exam Back exam: Present normal inspection and full ROM Neurological Exam Neurological exam: Present alert, oriented X3 and CN II-XII intact Psychiatric Psychiatric exam: Present normal affect and normal mood Skin Skin exam: Present warm, dry, intact and normal color Course Quality Measures none Vital Signs Vital signs: Vital Signs Temperature 98.3 F 05/28/24 10:26 Pulse Rate 88 05/28/24 10:26 Respiratory Rate 18 05/28/24 10:26 Blood Pressure 137/88 H 05/28/24 10:26 Pulse Oximetry (%) 96 05/28/24 10:26 Oxygen Delivery Method Room Air 05/28/24 10:26 O2 saturation 98% on room air within norm limits Extremity Injury, Lower MDM Narrative MDM Narrative:: 34-year-old female presents to the emergency department day for complaints of a bruise to her left upper leg patient does not remember any direct trauma patient is ambulatory On exam patient well-appearing patient does not appear ill or toxic patient has bruising left upper leg Patient discharged home in no distress to follow-up with primary care doctor in the next 24 to 48 hours and for any worsening symptoms to return to the ER immediately Patient data External records reviewed:: [facility] previous records Clinical information provided by:: patient Social determinants that could affect healthcare access:: none Patient has the following chronic illnesses:: None How is presenting disease/condition affected by chronic disease/condition?: no chronic disease Evaluation data The following diagnostics were reviewed and interpreted by me:: other (specify) Lab and/or radiology exams considered but not ordered:: consider not ordered Interpretation Summary: N/A Medications / Prescriptions Medications or Prescriptions considered but not ordered:: Given Medication administrations:: Given Consultations Consultation(s) initiated? (list below): No Diagnosis Extremity Injury, Lower Differential Diagnosis: other Most likely diagnosis given after review of the tests above:: Consider not ordered Admission Indicated Admission indicated?: not indicated Explain why admission is indicated or not indicated:: N/A Admission Request Was there a request for admission?: No Disposition Plan Disposition Plan: Discharge Discharge Attestation Discharge Attestation: The patient and all family members were given an opportunity to ask questions and understood the discharge instructions. Discharge instructions specifically effects, indications for sooner follow up or return to the emergency department, and the expected course of current diagnosis. Patient condition: Stable Discharge Plan Plan Patient Disposition: HOME (Self Care) Disposition Comment: Stable Prescriptions/Referrals Prescriptions/Med Rec: New ibuprofen 800 mg tablet 800 mg PO TID PRN (Reason: pain) Qty: 30 0RF No Action lisinopril 10 mg Tablet 10 mg PO QDAY hydrochlorothiazide 12.5 mg Tablet 25 mg PO QAM omeprazole 40 mg capsule,delayed release(DR/EC) 20 mg PO QDAY benzonatate 100 mg capsule 100 mg PO TID Qty: 14 0RF Problem List Clinical Impression: Hip pain, left Patient/Caregiver Discharge Instructions Education Materials: ED Hip Strain Additional Instructions: Please follow up with your primary care doctor in the next 24-48hrs for any worsening symptoms return here immediately Print Language: Tristanian Stand Alone Forms: Irish Award Info., Patient Portal Info Letter PA/SENIOR CYTOTECHNOLOGIST Supervising Physician PA/SENIOR CYTOTECHNOLOGIST Supervising Physician: dr [email or web address]
== END 2024-05-28 10:35 | disposition home or self-care (01) ==
LOC: SERX 10:36
PROVIDERS: Emergency Provider Emergency Medicine; PCP Nurse Practitioner
DX: S70.12XA Contusion of left thigh, initial encounter (principal); X58.XXXA Exposure to other specified factors, initial encounter
CPT/HCPCS: 99281

== ENCOUNTER 2024-09-06 22:18 | Emergency (ER) | payer MEDICAID, SELFPAY ==
[2024-09-06 22:19] VITALS: BMI 54.8
--- NOTE | 2024-09-06 22:37 | XR_ITS ---
Examination: CT abdomen and pelvis without contrast. Coronal 3-D reconstructions. Sagittal 2-D reconstructions. Date and time of exam:September 07, 2024, 0146 hours INDICATIONS: Abdominal pain beginning 3 days ago CTDI: vol (mGy): 22.1 DLP: (mGycm): 1361 Technique: Axial images of the abdomen have been obtained, 3 mm slice thickness Intravenous contrast material has not been administered. Low dose protocols were performed. One or more of the following dose reduction techniques were used; automated exposure control, adjustment of the mA and/or KV according to patient size, use of iterative reconstruction technique. Findings: No focal liver or splenic lesions Absent gallbladder No pancreatic or adrenal mass No renal or ureteral calculi, no hydronephrosis. Absent appendix No bowel obstruction 28 mm right ovarian cyst Bladder is intact Osseous structures intact IMPRESSION: No acute process in the abdomen or pelvis
[2024-09-06 22:38] VITALS: BP 120/86; PULSE 95; RESP 20; TEMP 37.2; O2SAT 99
[2024-09-06 23:39] LABS: Basophils # (Auto) 0.1 Thou/mm3 (0.0-0.2); Basophils % (Auto) 1 % (0-2.5); Eosinophils # (Auto) 0.2 Thou/mm3 (0.0-0.5); Eosinophils % (Auto) 3 % (0-10); Hematocrit 37.3 % (36.0-46.0); Hemoglobin 12.3 g/dL (12.0-16.0); Immature Granulocytes Auto 0.01 Thou/mm3 (0.00-0.00); Lymphocytes # (Auto) 2.9 Thou/mm3 (1.0-4.8); Lymphocytes % (Auto) 34 % (10-50); Mean Corpuscular HGB Conc 33.0 g/dl (31.0-37.0); Mean Corpuscular Hemoglobin 27.4 pg (25.0-35.0); Mean Corpuscular Volume 83 fL (80-100); Monocytes # (Auto) 0.4 Thou/mm3 (0.0-0.8); Monocytes % (Auto) 5 % (0-12); Neutrophils # (Auto) 5.0 Thou/mm3 (1.8-7.7); Neutrophils % (Auto) 58 % (37-80); Nucleated Red Blood Cell # 0.00 Thou/mm3 (0.00-0.00); Nucleated Red Blood Cell % 0 /100 WBC (0); Platelet Count 270 Thou/mm3 (140-440); RDW Standard Deviation 42.5 fL (36.4-46.3); Red Blood Count 4.49 Miln/mm3 (4.00-5.20); White Blood Count 8.6 Thou/mm3 (3.6-11.0)
[2024-09-06 23:47] LABS: Alanine Aminotransferase 15 U/L (10-49); Albumin, Serum 4.0 gm/dL (3.5-5.0); Albumin/Globulin Ratio 1.6 (1.2-2.2); Alkaline Phosphatase 68 U/L (46-116); Anion Gap 10 (7-16); Aspartate Amino Transferase 13 U/L (0-34); BUN/Creatinine Ratio 13 Ratio (12-20); Bilirubin,Total 0.3 mg/dL (0.3-1.2); Blood Urea Nitrogen 10 mg/dL (9-23); Calcium 8.7 mg/dL (8.3-10.6); Calcium (Corrected) 8.7 mg/dL (8.5-10.1); Carbon Dioxide 23.0 mMol/L (20.0-31.0); Chloride 111 mMol/L (98-107); Creatinine (Component) 0.8 mg/dL (0.6-1.3); Estimated Creatinine Clearance 158.6 mL/min (>60); Globulin 2.5 gm/dL (2.3-3.5); Glucose 105 mg/dL (74-106); Lipase 42 U/L (12-53); Osmolality,Calculated 285 (275-295); Potassium 3.9 mMol/L (3.4-5.1); Sodium 144 mMol/L (136-145); Total Protein 6.5 gm/dL (5.7-8.2); eGFR > 60 See Note
[2024-09-07] LABS: Collection Type, Urine Clean Catch
[2024-09-07 00:04] LABS: Bilirubin,Urine Negative (Negative); Blood,Urine Negative (Negative); Clarity,Urine Clear (Clear/Hazy); Color,Urine Lt-Yellow (Lt Yel-Yel); Glucose, Urine Negative (Negative); Ketones,Urine Negative (Negative); Leukocyte Esterase,Urine Negative (Negative); Nitrite,Urine Negative (Negative); PH,Urine 5.0 (5.0-7.0); Protein,Urine Negative (Neg - Trace); RBC,Urine 2 /hpf (0-3); Specific Gravity,Urine 1.031 (1.001-1.035); Squamous Epithelial Cell,Urine 3 /hpf (0-5); Urobilinogen,Urine Negative mg/dL (0.0-1.0); WBC,Urine 1 /hpf (0-5)
[2024-09-07 00:05] LABS: HCG Qualitative,Urine Negative
--- NOTE | 2024-09-07 03:37 | PRELIM_ITS ---
CT scan of the abdomen and pelvis without intravenous contrast (axial sections with sagittal and coronal reformats) September 07, 2024 0146 hours Clinical History: abd pain Comparison: No prior study is available for comparison. Findings: The lung bases are clear. The gallbladder is surgically absent. The liver, pancreas, spleen, kidneys and adrenals are unremarkable on this noncontrast study. No evidence of bowel obstruction.The appendix is not visualized and may be surgically absent. There is no mesenteric or retroperitoneal adenopathy. The urinary bladder is unremarkable. There is a right ovarian cyst, measuring 3 cm. A small fat-containing umbilical hernia is present. There is no free fluid or free air. The osseous structures are unremarkable. Impression: No evidence of bowel obstruction, free air or fluid collection. Other findings as described above. Report Electronically Signed By: Collins Morales 09/07/2024 3:36:06 AM [EST]
--- NOTE | 2024-09-07 04:12 | EDNOTE_ITS ---
ED Abdominal Pain RME/HPI General Chief Complaint: Abdominal Pain Stated complaint: ABD PAIN Time seen by provider: 09/06/24 22:20 Arrival date/time: This is a case of year old female with a history of hypertension, diabetes, cervical cancer undergoing chemotherapy, s/p tubal ligation ulcerative colitis gastritis came in in the emergency room due to abdominal pain cramping in character mostly on the periumbilical area associated with nausea vomiting for 1 day Limitations: no limitations Related Data Home Medications ?Medication ?Instructions ?Recorded ?Confirmed hydrochlorothiazide 12.5 mg tablet 25 mg PO QAM 03/25/24 lisinopril 10 mg tablet 10 mg PO QDAY 11/08/2203/25 omeprazole 40 mg capsule,delayed 20 mg PO QDAY 5 03/24/24 release Previous Rx's ?Medication ?Instructions ?Recorded benzonatate 100 mg capsule 100 mg PO TID #14 caps 04/04 09/25 ibuprofen 800 mg tablet 800 mg PO TID PRN pain #30 t abs 05/28/24 dicyclomine 20 mg tablet 20 mg PO TID PRN abdominal p ain 09/07/24 #20 tabs ondansetron 4 mg disintegrating 4 mg PO Q8H PRN nausea and 09/07/24 tablet vomiting #20 tabs Allergies Allergy/AdvReac Type Severity Reaction Status Date / Time amoxicillin Allergy Severe Rash Verified 09/06/24 22:24 cephalexin Allergy Severe Rash Verified 09/06/24 22:24 adhesive tape Allergy Intermediate Rash Verified 09/06/24 22:24 bee venom protein (honey bee) Allergy Intermediate Anaphylaxis Verified 09/06/24 22:24 Review of Systems Constitutional Constitutional: Reports system reviewed and no additional complaints, except as documented and Reports as per HPI ENT Ears, Nose, Mouth, and Throat: Denies dysphagia and Denies odynophagia Cardiovascular Cardiovascular: Reports system reviewed and no additional complaints, except as documented and Reports as per HPI Respiratory Respiratory: Reports system reviewed and no additional complaints, except as documented and Reports as per HPI Gastrointestinal Gastrointestinal: Reports system reviewed and no additional complaints, except as documented, Reports as per HPI, Reports abdominal pain, Denies belching, Denies bloating, Denies change in bowel habits, Denies change in stool character, Denies coffee ground emesis, Denies constipation, Denies cramping, Denies diarrhea, Denies dysphagia, Denies early satiety, Denies excessive flatus, Denies fecal incontinence, Denies heartburn, Denies hematemesis, Denies hematochezia, Denies loose stools, Denies melena, Reports nausea, Denies odynophagia, Denies tenesmus and Reports vomiting Genitourinary Genitourinary: Reports system reviewed and no additional complaints, except as documented and Reports as per HPI Musculoskeletal Musculoskeletal: Reports system reviewed and no additional complaints, except as documented and Reports as per HPI Neurologic Neurologic: Reports system reviewed and no additional complaints, except as documented and Reports as per HPI Past Medical History Past Medical History NEUROLOGIC: Positive Neurological Disorders and Transient Ischemic Attacks (TIA); Negative Seizures CARDIAC: Positive Cardiac Disorders and Hypertension; Negative Hypercholesterolemia or Congestive Heart Failure RESPIRATORY: Positive Asthma; Negative Chronic Obstructive Pulmonary Disease (COPD) GASTROINTESTINAL: Positive Gastrointestinal Disorders, Gall Bladder Disease, Colitis, Ulcerative Colitis, Ulcer and Obesity; Negative Hepatitis or Colorectal Cancer GENITOURINARY: Positive Kidney Stones; Negative Genitourinary Disorders, Renal Disease or Prostate Cancer REPRODUCTIVE: Positive Previous Pregnancies; Negative Breast Cancer or Testicular Cancer MUSCULOSKELETAL: Positive Musculoskeletal Disorders and Arthritis; Negative Bone Cancer ENDOCRINE: Positive Endocrine Disorders and Diabetes Mellitus Type 2 (pre); Negative Diabetes Mellitus Type 1 HEMATOLOGIC: Negative Blood Disorders, Anemia or Sickle Cell Disease PSYCHO/SOCIAL: Positive Anxiety OTHER HISTORY: Positive Hospitalization; Negative Autoimmune Disease, Down Syndrome, Developmental Delay, Shingles, Falls, Blood Transfusions, Blood Transfusion Reaction, Anesthesia Reactions, Organ Transplant, Chemotherapy, Radiation Therapy, Hyperbaric Therapy, MRSA, VRSA, Vancomycin-Resistant Enterococci, Human Immunodeficiency Virus (HIV), Chicken Pox, Measles, Mumps, Rubella (Irish Measles), Pertussis, Clostridium Difficile, Cancer, Breast Cancer, Cervical Cancer, Colorectal Cancer, Lung Cancer, Ovarian Cancer, Prostate Cancer or Testicular Cancer Family History FAMILY HISTORY: Positive Family Cardiac Disorders and Family Surgery; Negative Family Psychiatric Problems, Family Respiratory Disorders, Family Gastrointestinal Problems, Family Cancer or Family Anesthesia Reaction Surgical History SURGICAL: Positive Arthroscopy (right knee x2), Tubal Ligation and Section (x3); Negative Organ Transplant Social History SMOKING STATUS: Never smoker SECOND HAND EXPOSURE: No SUBSTANCE USE: does not use ED Exam General Limitations: Present no limitations General appearance: Present alert and in no apparent distress Head Head exam: Present atraumatic Eye Eye exam: Present normal appearance, PERRL and EOMI ENT ENT exam: Present normal exam, normal oropharynx and mucous membranes moist Neck Neck exam: Present normal inspection, full ROM and trachea midline; Absent tenderness, meningismus, lymphadenopathy or thyromegaly Chest Chest inspection: Present normal inspection and symmetric chest wall rise; A bsent tenderness, rash or abscess Respiratory Respiratory exam: Present normal lung sounds bilaterally; Absent respiratory distress, wheezes, stridor, accessory muscle use or prolonged expiratory phase Cardiovascular Cardiovascular exam: Present regular rate, normal rhythm and normal heart sounds; Absent bradycardia, tachycardia, irregular rhythm, systolic murmur or diastolic murmur Abdominal Exam Abdominal exam: Present soft, tenderness (Mild tenderness in periumbilical area), normal bowel sounds and other (No CVA tenderness); Absent distention, guarding, rebound, rigidity, diminished bowel sounds, hyperactive bowel sounds, hypoactive bowel sounds, organomegaly, psoas sign, Patiño's sign, Rovsing's sign or ascites Extremities Exam Extremities exam: Present normal inspection and full ROM Back Exam Back exam: Present normal inspection and full ROM Neurological Exam Neurological exam: Present alert, oriented X3, CN II-XII intact, normal gait and reflexes normal; Absent motor sensory deficit Psychiatric Psychiatric exam: Present normal affect and normal mood Skin Skin exam: Present warm, dry, intact and normal color Course Quality Measures none Orders Category Date Time Status CT abdomen pelvis wo con Stat Exams 09/06/24 22:37 Taken CBC Stat Lab 09/06/24 23:05 Completed Comprehensive Metabolic Panel Stat Lab 09/06/24 23:05 Completed HCG Qualitative,Urine Stat Lab 09/06/24 23:32 Completed Lipase Stat Lab 09/06/24 23:05 Completed Urinalysis Stat Lab 09/06/24 23:32 Completed HYDROcodone*/APAP 5/325 [[place] 5/325] Med 09/07/24 04:05 Discontinued 1 tab PO X1 ONE Ketorolac Inj [Toradol Inj] Med 09/07/24 04:05 Discontinued 30 mg IM X1 ONE Ondansetron Odt [Zofran Odt] Med 09/07/24 04:05 Discontinued 4 mg PO X1 ONE Vital Signs Vital signs: Vital Signs Temperature 99.0 F 09/06/24 22:38 Pulse Rate 95 09/06/24 22:38 Respiratory Rate 20 09/06/24 22:38 Blood Pressure 120/86 H 09/06/24 22:38 Pulse Oximetry (%) 99 09/06/24 22:38 Oxygen Delivery Method Room Air 09/06/24 22:38 Oxygen saturation is 99% room air normal Abdominal Pain MDM MDM Narrative MDM Narrative:: This is a case of year old female with a history of hypertension, diabetes, cervical cancer undergoing chemotherapy, s/p tubal ligation ulcerative colitis gastritis came in in the emergency room due to abdominal pain cramping in character mostly on the periumbilical area associated with nausea vomiting for 1 day physical examination patient is awake alert oriented not in distress nontoxic looking patient is afebrile not tachycardic not tachypneic not hypoxic excellent skin turgor abdominal exam benign nonsurgical no guarding no rebound no rigidity mild tenderness in the periumbilical area negative psoas negative obturator negative Rovsing's negative McBurney's negative Patiño's negative CVA tenderness the rest of the physical examination neurological exam is normal and unremarkable blood test showed no leukocytosis no anemia kidney and liver function is normal no electrolyte imbalance lipase is normal urinalysis is no rmal CT scan showed ovarian cyst and umbilical hernia at this point patient will be discharged home with stable condition patient will follow-up with PCP to be referred to RECORDS ADMINISTRATOR if her ovarian cyst and GI specialist for umbilical hernia patient was informed for any worsening symptoms or any emergent concerns she will return in the emergency room immediately or call 911 patient was prescribed with Bentyl for pain and Zofran for nausea vomiting Patient was discharged with comfortable condition walking with stable gait. Patient verbalized no further complains explained diagnosis and answered patient question. Patient is comfortable with the proposed management plan including the need to follow up with his/her primary care physician and any specialist if applicable Discussed patient for any urgent condition or worsening sx, He/She needed to go to emergency room immediately or call 911. Patient acknowledge the responsibility to follow up as instructed and to monitor her/his symptoms. For any persistence of the symptoms for more than 3-5 days return precaution advised. Discussed the result of the test and was given printed discharge instruction Patient data External records reviewed:: [facility] previous records Clinical information provided by:: patient Social determinants that could affect healthcare access:: none Patient has the following chronic illnesses:: None How is presenting disease/condition affected by chronic disease/condition?: no chronic disease Evaluation data The following diagnostics were reviewed and interpreted by me:: lab results and radiology exam(s) Lab and/or radiology exams considered but not ordered:: Reviewed Interpretation Summary: Reviewed Medications / Prescriptions Medications or Prescriptions considered but not ordered:: Given Medication administrations:: Medication Administration History Discontinued Medications Hydrocodone Bitart/Acetaminophen (Hydrocodone/Apap 5/325 Tablet) 1 tab PO X1 ONE Stop: 09/07/24 04:06 Ketorolac Tromethamine (Ketorolac Inj 60 Mg/2 Ml Vial) 30 mg IM X1 ONE Stop: 09/07/24 04:06 Ondansetron HCl (Ondansetron Odt 4 Mg Tabrap) 4 mg PO X1 ONE; Protocol Stop: 09/07/24 04:06 Given Consultations Consultation(s) initiated? (list below): No Diagnosis Differential diagnosis abdominal pain: abdominal pain, acute appendicitis, calculus of kidney and diverticulitis Most likely diagnosis given after review of the tests above:: Abdominal pain ovarian cyst umbilical hernia Admission Indicated Admission indicated?: not indicated Explain why admission is indicated or not indicated:: Not indicated Admission Request Was there a request for admission?: No Admission Attestation Admission request attestation: Not indicated Disposition Plan Disposition Plan: Discharge Discharge Attestation Discharge Attestation: The patient and all family members were given an opportunity to ask questions and understood the discharge instructions. Discharge instructions specifically effects, indications for sooner follow up or return to the emergency department, and the expected course of current diagnosis. Patient condition: Stable Discharge Plan Plan Patient Disposition: HOME (Self Care) Patient condition on transfer: Stable Prescriptions/Referrals Prescriptions/Med Rec: New ondansetron 4 mg tablet,disintegrating 4 mg PO Q8H PRN (Reason: nausea and vomiting) Qty: 20 0RF dicyclomine 20 mg tablet 20 mg PO TID PRN (Reason: abdominal pain) Qty: 20 0RF No Action lisinopril 10 mg Tablet 10 mg PO QDAY hydrochlorothiazide 12.5 mg Tablet 25 mg PO QAM omeprazole 40 mg capsule,delayed release(DR/EC) 20 mg PO QDAY benzonatate 100 mg capsule 100 mg PO TID Qty: 14 0RF ibuprofen 800 mg tablet 800 mg PO TID PRN (Reason: pain) Qty: 30 0RF Referrals: Negro,Mandy Christianne, [employer] [Primary Care Provider] - In 1 week Problem List Clinical Impression: Abdominal pain, Ovarian cyst, Hernia, umbilical Patient/Caregiver Discharge Instructions Education Materials: Abdominal Pain, ED Hernia (Adult), ED Ovarian Cyst Additional Instructions: Follow-up with your primary care physician in 2 days for reevaluation and to be referred to design engineering technician for further evaluation and treatment of umbilical hernia and RECORDS ADMINISTRATOR if for ovarian cyst worsening symptoms or any emergent concern call 911 or go to the nearest emergency room take your medication as directed keep hydrated Print Language: Mauritanian Stand Alone Forms: Irish Award Info., Patient Portal Info Letter PA/[employer] Supervising Physician PA/[employer] Supervising Physician: dr owens
== END 2024-09-07 04:20 | disposition home or self-care (01) ==
PROVIDERS: Nurse Practitioner Family; Emergency Provider Emergency Medicine; PCP Nurse Practitioner
DX: N83.201 Unspecified ovarian cyst, right side (principal); K42.9 Umbilical hernia without obstruction or gangrene; E11.9 Type 2 diabetes mellitus without complications; I10 Essential (primary) hypertension; Z98.51 Tubal ligation status; C53.9 Malignant neoplasm of cervix uteri, unspecified
CPT/HCPCS: 36415; 74176; 80053; 81001; 81025; 83690; 85025; 99284

== ENCOUNTER 2024-10-07 13:28 | Emergency (ER) | payer MEDICAID, SELFPAY ==
[2024-10-07 13:53] VITALS: BP 136/90; PULSE 96; RESP 18; TEMP 36.9; O2SAT 99; BMI 54.8
--- NOTE | 2024-10-07 15:05 | EDNOTE_ITS ---
<Statement entered by Cathy Jimenez MD - 10/08/24 09:35> As co-signing physician, I was present and available for consult prn. I concur with the plan and care as documented by the midlevel provider. ED Animal Bite RME/HPI General Chief Complaint: Animal Bite Stated Complaint: Left lower arm swollen from bite Time Seen by Provider: 10/07/24 14:49 Arrival date/time: 10/07/24 13:28 RME / HPI RME / HPI narrative: 34-year-old female patient came in for evaluation regarding left forearm redness and swelling. Patient noticed a bite breanna to the left forearm, patient is worried that she got bitten with a spider. Patient denies any fever denies any other complaints no medications taken prior to arrival. Related Data Home Medications ?Medication ?Instructions ?Recorded ?Confirmed hydrochlorothiazide 12.5 mg tablet 25 mg PO QAM 03/25/24 lisinopril 10 mg tablet 10 mg PO QDAY 11/08/2203/25 omeprazole 40 mg capsule,delayed 20 mg PO QDAY 5 03/24/24 release Previous Rx's ?Medication ?Instructions ?Recorded benzonatate 100 mg capsule 100 mg PO TID #14 caps 04/04 09/25 ibuprofen 800 mg tablet 800 mg PO TID PRN pain #30 t abs 05/28/24 dicyclomine 20 mg tablet 20 mg PO TID PRN abdominal p ain 09/07/24 #20 tabs ondansetron 4 mg disintegrating 4 mg PO Q8H PRN nausea and 09/07/24 tablet vomiting #20 tabs sulfamethoxazole 800 1 tab PO BID #14 tabs mg-trimethoprim 160 mg tablet (Bactrim DS) Allergies Allergy/AdvReac Type Severity Reaction Status Date / Time amoxicillin Allergy Severe Rash Verified 10/07/24 13:33 cephalexin Allergy Severe Rash Verified 10/07/24 13:33 adhesive tape Allergy Intermediate Rash Verified 10/07/24 13:33 bee venom protein (honey bee) Allergy Intermediate Anaphylaxis Verified 10/07/24 13:33 Review of Systems Review of Systems Narrative Review of Systems: Review of system reviewed and within normal limits except mentioned in HPI ED Exam Narrative Physical exam: VITAL SIGNS: Reviewed. GENERAL APPEARANCE: Alert and interactive, follows commands, no acute distress, HEAD AND FACE: Non-traumatic. ENT: PERRL, pink conjunctivitis, eyelid no trauma, Mucous membrane moist. NECK: Supple, nontender, no nuchal rigidity. CHEST: No tenderness, no crepitus, no paradoxical movement, no retractions. LUNGS: Clear, well ventilated, symmetric, no rales, no wheezing, no ronchi, no stridor, good breath sounds bilaterally. HEART: Regular rate, regular rhythm, no murmur, no gallops. ABDOMEN: Soft, positive bowel sounds, nondistended, no guarding, nontender, no rebound, no masses, RECTAL: Deferred. GENITAL: Deferred. NEUROLOGICAL: Gross motor function intact sensory function intact, Appropriate for age. MUSCULOSKELETAL: low back nontender, full range of motion. EXTREMITIES: Left forearm swelling with bite breanna on the center, measuring about 5 x 5 cm in diameter, no necrosis noted, nonfluctuant, full range of motion. SKIN: Color pink, dry, no rash, no lacerations, no abrasions, no contusions. LYMPHATICS: Deferred. Course Quality Measures none Orders Category Date Time Status Acetaminophen Tab [Tylenol ES Tab] Med 10/07/24 15:04 Discontinued 1,000 mg PO X1 ONE TET,DIP/PERT AC (Adult)-Tdap [Boostrix Adult (Tdap) Med 10/07/24 15:04 Discontinued Vacc] 0.5 ml IMI .ONCE ONE Trimethoprim/Sulfa 160/800 Ds [Bactrim Ds] Med 10/07/24 15:04 Discontinued 1 tab PO X1 ONE Vital Signs Vital signs: Vital Signs Temperature 98.4 F 10/07/24 13:53 Pulse Rate 96 10/07/24 13:53 Respiratory Rate 18 10/07/24 13:53 Blood Pressure 136/90 H 10/07/24 13:53 Pulse Oximetry (%) 99 10/07/24 13:53 Oxygen Delivery Method Room Air 10/07/24 13:53 Animal Bite MDM Narrative MDM Narrative:: 34-year-old female patient came in for evaluation regarding left forearm redness and swelling. Patient noticed a bite breanna to the left forearm, patient is worried that she got bitten with a spider. Patient denies any fever denies any other complaints no medications taken prior to arrival. Patient was given antibiotic for infected insect bite. Imaging workup not needed at this time Patient data External records reviewed:: None Clinical information provided by:: patient Social determinants that could affect healthcare access:: none Patient has the following chronic illnesses:: None How is presenting disease/condition affected by chronic disease/condition?: no chronic disease Evaluation data The following diagnostics were reviewed and interpreted by me:: other (specify) Lab and/or radiology exams considered but not ordered:: None Interpretation Summary: None Medications / Prescriptions Medications or Prescriptions considered but not ordered:: None Medication administrations:: Medication Administration History Discontinued Medications Acetaminophen (Acetaminophen 500 Mg Tablet) 1,000 mg PO X1 ONE Stop: 10/07/24 15:05 Last Admin: 10/07/24 15:11 Dose: 1,000 mg Documented By: GEORGE Diphtheria/Tetanus/Acell Pertussis (Diphth,Pertuss(Acell),Tet Vac 0.5 Ml Syr- Adult) 0.5 ml IMi .ONCE ONE Stop: 10/07/24 15:05 Last Admin: 10/07/24 15:12 Dose: 0.5 ml Documented By: GEORGE Trimethoprim/Sulfamethoxazole (Trimethoprim/Sulfa 160/800 Ds Tablet) 1 tab PO X1 ONE Stop: 10/07/24 15:05 Last Admin: 10/07/24 15:12 Dose: 1 tab Documented By: GEORGE Tylenol Boostrix and Bactrim Consultations Consultation(s) initiated? (list below): No Diagnosis Differential diagnosis animal bite: bite by animal and other (Infected insect bite) Most likely diagnosis given after review of the tests above:: Infected insect bite Admission Indicated Admission indicated?: not indicated Admission Request Was there a request for admission?: No Disposition Plan Disposition Plan: Discharge Discharge Attestation Discharge Attestation: The patient was given an opportunity to ask questions and understood the discharge instructions. Discharge instructions specifically effects, indications for sooner follow up or return to the emergency department, and the expected course of current diagnosis. Patient condition: Stable Discharge Plan Plan Patient Disposition: HOME (Self Care) Discharge Disposition comment: stable Prescriptions/Referrals Prescriptions/Med Rec: New sulfamethoxazole-trimethoprim [Bactrim DS] 800-160 mg tablet 1 tab PO BID Qty: 14 0RF No Action lisinopril 10 mg Tablet 10 mg PO QDAY hydrochlorothiazide 12.5 mg Tablet 25 mg PO QAM omeprazole 40 mg capsule,delayed release(DR/EC) 20 mg PO QDAY benzonatate 100 mg capsule 100 mg PO TID Qty: 14 0RF ondansetron 4 mg tablet,disintegrating 4 mg PO Q8H PRN (Reason: nausea and vomiting) Qty: 20 0RF dicyclomine 20 mg tablet 20 mg PO TID PRN (Reason: abdominal pain) Qty: 20 0RF ibuprofen 800 mg tablet 800 mg PO TID PRN (Reason: pain) Qty: 30 0RF Problem List Clinical Impression: Infected insect bite Patient/Caregiver Discharge Instructions Discharge Activity: activity as tolerated Education Materials: ED Insect Bite Additional Instructions: Thank you for the opportunity for serving you today. You are stable for discharged . You are advised to: Follow-up with your PCP in 1 to 2 days Return to ED for worsening of symptoms Increase oral fluids Take medication as prescribed Daily dressing with bacitracin as needed Print Language: Macedonian Stand Alone Forms: Irish Award Info., Patient Portal Info Letter PA/NORMA Supervising Physician CASIE/NORMA Supervising Physician: MD Tony
[2024-10-07] MEDS: ACETAMINOPHEN 500 MG TABLET 1000 MG PO (15:11)
[2024-10-07] MEDS: TRIMETHOPRIM/SULFA 160/800 DS TABLET 1 TAB PO (15:12)
[2024-10-07] MEDS: DIPHTH,PERTUSS(ACELL),TET VAC 0.5 ML SYR- ADULT IMi (15:12)
== END 2024-10-07 15:34 | disposition home or self-care (01) ==
LOC: SERX 15:38
PROVIDERS: Emergency Provider Nurse Practitioner Family; PCP Nurse Practitioner
DX: S50.862A Insect bite (nonvenomous) of left forearm, initial encounter (principal); L08.9 Local infection of the skin and subcutaneous tissue, unspecified; W57.XXXA Bitten or stung by nonvenomous insect and other nonvenomous arthropods, initial encounter; Z23 Encounter for immunization
CPT/HCPCS: 90471; 90715; 99282; A9270

== ENCOUNTER 2024-10-26 19:59 | Emergency (ER) | payer MEDICAID, SELFPAY ==
[2024-10-26 20:00] VITALS: BMI 53.2
[2024-10-26 20:50] VITALS: BP 156/94; PULSE 81; RESP 17; TEMP 37.3; O2SAT 99
--- NOTE | 2024-10-26 21:36 | PD.EDABDPN ---
ED Abdominal Pain RME/HPI General Chief Complaint: Abdominal Pain Stated complaint: BLOOD IN STOOL X 3 DAYS Time seen by provider: 10/26/24 21:26 Arrival date/time: 10/26/24 19:59 RME / HPI RME / HPI narrative: Dr. [facility] Evaluation: 34yo female Related Data Home Medications ?Medication ?Instructions ?Recorded ?Confirmed hydrochlorothiazide 12.5 mg tablet 25 mg PO QAM 11/08/22 03/25/24 lisinopril 10 mg tablet 10 mg PO QDAY 11/08/22 03/25/24 omeprazole 40 mg capsule,delayed 20 mg PO QDAY 03/24/24 03/24/24 release Previous Rx's ?Medication ?Instructions ?Recorded benzonatate 100 mg capsule 100 mg PO TID #14 caps 04/20/24 ibuprofen 800 mg tablet 800 mg PO TID PRN pain #30 tabs 05/28/24 dicyclomine 20 mg tablet 20 mg PO TID PRN abdominal pain 09/07/24 #20 tabs ondansetron 4 mg disintegrating 4 mg PO Q8H PRN nausea and 09/07/24 tablet vomiting #20 tabs sulfamethoxazole 800 1 tab PO BID #14 tabs 10/07/24 mg-trimethoprim 160 mg tablet (Bactrim DS) Allergies Allergy/AdvReac Type Severity Reaction Status Date / Time amoxicillin Allergy Severe Rash Verified 10/26/24 20:01 cephalexin Allergy Severe Rash Verified 10/26/24 20:01 adhesive tape Allergy Intermediate Rash Verified 10/26/24 20:01 bee venom protein (honey bee) Allergy Intermediate Anaphylaxis Verified 10/26/24 20:01 Review of Systems Review of Systems Systems Reviewed: All systems reviewed, normal except as documented Course Vital Signs Vital signs: Vital Signs Temperature 99.2 F 10/26/24 20:50 Pulse Rate 81 10/26/24 20:50 Respiratory Rate 17 10/26/24 20:50 Blood Pressure 156/94 H 10/26/24 20:50 Pulse Oximetry (%) 99 10/26/24 20:50 Oxygen Delivery Method Room Air 10/26/24 20:50 Discharge Plan Prescriptions/Referrals Prescriptions/Med Rec: No Action lisinopril 10 mg Tablet 10 mg PO QDAY hydrochlorothiazide 12.5 mg Tablet 25 mg PO QAM omeprazole 40 mg capsule,delayed release(DR/EC) 20 mg PO QDAY benzonatate 100 mg capsule 100 mg PO TID Qty: 14 0RF ondansetron 4 mg tablet,disintegrating 4 mg PO Q8H PRN (Reason: nausea and vomiting) Qty: 20 0RF dicyclomine 20 mg tablet 20 mg PO TID PRN (Reason: abdominal pain) Qty: 20 0RF sulfamethoxazole-trimethoprim [Bactrim DS] 800-160 mg tablet 1 tab PO BID Qty: 14 0RF ibuprofen 800 mg tablet 800 mg PO TID PRN (Reason: pain) Qty: 30 0RF Referrals: Mandy Negro FNP [Primary Care Provider] - In 1 week Patient/Caregiver Discharge Instructions Print Language: Italian
--- NOTE | 2024-10-26 21:47 | XR_ITS ---
Examination: CT abdomen and pelvis without contrast. Coronal 3-D reconstructions. Sagittal 2-D reconstructions. Date and time of exam:October 27, 2024, 0156 hours, comparison September 07, 2024. INDICATIONS: Blood in stool abdominal pain beginning 3 days ago CTDI: vol (mGy): 23.7 DLP: (mGycm): 1437 Technique: Axial images of the abdomen have been obtained, 3 mm slice thickness Intravenous contrast material has not been administered. Low dose protocols were performed. One or more of the following dose reduction techniques were used; automated exposure control, adjustment of the mA and/or KV according to patient size, use of iterative reconstruction technique. Findings: Lack of intravenous contrast limits assessment for gastrointestinal bleeding. No liver or splenic lesions. Absent gallbladder. No pancreatic or adrenal mass. Mild renal scarring. Aorta normal size. 12 mm fat-containing umbilical hernia. Absent appendix. No bowel obstruction or diverticulitis. No pelvic mass. Intact urinary bladder. Osseous structures intact. IMPRESSION: No acute process in the abdomen or pelvis.
--- NOTE | 2024-10-26 21:48 | EDRME_ITS ---
Rapid Medical Screening Exam RME Arrival date/time: 10/26/24 19:59 This is a case of 34-year-old female with no medical history came into the emergency room due to abdominal pain nausea vomiting dizziness and blood in stool worsening of the symptoms this patient decided to start consult here in the emergency room Chief Complaint: Abdominal Pain Time Seen by Provider: 10/26/24 21:26 Vital signs: Vital Signs Temperature 99.2 F 10/26/24 20:50 Pulse Rate 81 10/26/24 20:50 Respiratory Rate 17 10/26/24 20:50 Blood Pressure 156/94 H 10/26/24 20:50 Pulse Oximetry (%) 99 10/26/24 20:50 Oxygen Delivery Method Room Air 10/26/24 20:50 [facility] Narrative: Dr. Carlson?marciano Main ED Evaluation: 34yo female
[2024-10-26 22:09] LABS: Basophils # (Auto) 0.1 Thou/mm3 (0.0-0.2); Basophils % (Auto) 1 % (0-2.5); Eosinophils # (Auto) 0.2 Thou/mm3 (0.0-0.5); Eosinophils % (Auto) 1 % (0-10); Hematocrit 39.7 % (36.0-46.0); Hemoglobin 13.1 g/dL (12.0-16.0); Immature Granulocytes Auto 0.02 Thou/mm3 (0.00-0.00); Lymphocytes # (Auto) 3.1 Thou/mm3 (1.0-4.8); Lymphocytes % (Auto) 27 % (10-50); Mean Corpuscular HGB Conc 33.0 g/dl (31.0-37.0); Mean Corpuscular Hemoglobin 27.5 pg (25.0-35.0); Mean Corpuscular Volume 83 fL (80-100); Monocytes # (Auto) 0.5 Thou/mm3 (0.0-0.8); Monocytes % (Auto) 5 % (0-12); Neutrophils # (Auto) 7.4 Thou/mm3 (1.8-7.7); Neutrophils % (Auto) 66 % (37-80); Nucleated Red Blood Cell # 0.00 Thou/mm3 (0.00-0.00); Nucleated Red Blood Cell % 0 /100 WBC (0); Platelet Count 294 Thou/mm3 (140-440); RDW Standard Deviation 42.4 fL (36.4-46.3); Red Blood Count 4.76 Miln/mm3 (4.00-5.20); White Blood Count 11.2 Thou/mm3 (3.6-11.0)
[2024-10-26 22:34] LABS: Alanine Aminotransferase 16 U/L (10-49); Albumin, Serum 4.3 gm/dL (3.5-5.0); Albumin/Globulin Ratio 1.7 (1.2-2.2); Alkaline Phosphatase 76 U/L (46-116); Anion Gap 9 (7-16); Aspartate Amino Transferase 15 U/L (0-34); BUN/Creatinine Ratio 10 Ratio (12-20); Bilirubin,Total 0.8 mg/dL (0.3-1.2); Blood Urea Nitrogen 9 mg/dL (9-23); Calcium 9.7 mg/dL (8.3-10.6); Calcium (Corrected) 9.7 mg/dL (8.5-10.1); Carbon Dioxide 23.8 mMol/L (20.0-31.0); Chloride 108 mMol/L (98-107); Creatinine (Component) 0.9 mg/dL (0.6-1.3); Estimated Creatinine Clearance 138.5 mL/min (>60); Globulin 2.5 gm/dL (2.3-3.5); Glucose 92 mg/dL (74-106); Lipase 37 U/L (12-53); Osmolality,Calculated 279 (275-295); Potassium 3.6 mMol/L (3.4-5.1); Sodium 141 mMol/L (136-145); Total Protein 6.8 gm/dL (5.7-8.2); eGFR > 60 See Note
[2024-10-27 00:10] VITALS: BP 139/78; PULSE 83; RESP 18; TEMP 37.1; O2SAT 98
[2024-10-27 00:34] LABS: HCG,Qualitative Serum Negative
[2024-10-27 00:47] LABS: Collection Type, Urine Clean Catch
[2024-10-27 00:53] LABS: Bilirubin,Urine Negative (Negative); Blood,Urine Negative (Negative); Clarity,Urine Clear (Clear/Hazy); Color,Urine Yellow (Lt Yel-Yel); Glucose, Urine Negative (Negative); Ketones,Urine Negative (Negative); Leukocyte Esterase,Urine Negative (Negative); Nitrite,Urine Negative (Negative); PH,Urine 6.0 (5.0-7.0); Protein,Urine Trace (Neg - Trace); RBC,Urine 5 /hpf (0-3); Specific Gravity,Urine 1.036 (1.001-1.035); Squamous Epithelial Cell,Urine 8 /hpf (0-5); Urobilinogen,Urine Negative mg/dL (0.0-1.0); WBC,Urine 2 /hpf (0-5)
[2024-10-27 00:59] LABS: HCG Qualitative,Urine Negative
--- NOTE | 2024-10-27 04:44 | PRELIM_ITS ---
CT scan of the abdomen and pelvis without intravenous contrast (axial sections with sagittal and coronal reformats) October 27, 2024 0156 hours Clinical History: Abdominal pain. Comparison: Reference is made to the prior report dated September 07, 2024. Findings: The lung bases are clear. The gallbladder is surgically absent. The liver, pancreas, spleen, kidneys and adrenals are unremarkable on this noncontrast study. No evidence of bowel obstruction. The appendix is not visualized and may be surgically absent. There is no mesenteric or retroperitoneal adenopathy. The urinary bladder is unremarkable. The uterus is unremarkable. No evidence of adnexal mass. There is no free fluid or free air. The osseous structures are unremarkable. Impression: No evidence of bowel obstruction, free air or abscess. Other findings as described above. Report Electronically Signed By: Collins Morales 10/27/2024 4:43:41 AM [EST]
--- NOTE | 2024-10-27 06:55 | PC.NURSE ---
CALLED PT IN ER LOBBY AND OUTSIDE AND NO ANSWER
--- NOTE | 2024-10-27 07:03 | PC.NURSE ---
CALLED PT IN ER LOBBY AND OUTSIDE AND NO ANSWER
== END 2024-10-27 07:28 | disposition left against medical advice (07) ==
LOC: SERX 21:33
PROVIDERS: Nurse Practitioner Family; Emergency Provider Emergency Medicine; PCP Nurse Practitioner
DX: R10.9 Unspecified abdominal pain (principal); R11.2 Nausea with vomiting, unspecified; R42 Dizziness and giddiness; K92.1 Melena; Z53.29 Procedure and treatment not carried out because of patient's decision for other reasons
CPT/HCPCS: 36415; 74176; 80053; 81001; 81025; 83690; 84703; 85025; 99283

== ENCOUNTER 2024-11-01 01:01 | Emergency (ER) | payer MEDICAID, SELFPAY ==
[2024-11-01 01:03] VITALS: BP 135/93; PULSE 96; RESP 18; TEMP 36.8; O2SAT 97; BMI 54.8
--- NOTE | 2024-11-01 01:41 | EDNOTE_ITS ---
ED Animal Bite RME/HPI General Chief Complaint: General Adult/Misc Complain Stated Complaint: POSS SPIDER BITE NECK Time Seen by Provider: 11/01/24 01:12 Arrival date/time: 11/01/24 01:01 This is a case of 34-year-old female who came in in the emergency room due to pain on the anterior neck swelling and redness 2 hours prior to arrival in the emergency room secondary to spider bite patient has no drooling of saliva patient can speak full sentences no facial or throat swelling no throat pain no rash persistence of the symptoms thus patient decided to sought consult here in the emergency ROOM Limitations: no limitations Related Data Home Medications ?Medication ?Instructions ?Recorded ?Confirmed hydrochlorothiazide 12.5 mg tablet 25 mg PO QAM 03/25/24 lisinopril 10 mg tablet 10 mg PO QDAY 11/08/2203/25 omeprazole 40 mg capsule,delayed 20 mg PO QDAY 5 03/24/24 release Previous Rx's ?Medication ?Instructions ?Recorded benzonatate 100 mg capsule 100 mg PO TID #14 caps 04/04 09/25 ibuprofen 800 mg tablet 800 mg PO TID PRN pain #30 t abs 05/28/24 dicyclomine 20 mg tablet 20 mg PO TID PRN abdominal p ain 09/07/24 #20 tabs ondansetron 4 mg disintegrating 4 mg PO Q8H PRN nausea and 09/07/24 tablet vomiting #20 tabs sulfamethoxazole 800 1 tab PO BID #14 tabs mg-trimethoprim 160 mg tablet (Bactrim DS) diphenhydramine HCl 25 mg capsule 25 mg PO TID PRN all ergic reaction 11/01/24 #20 caps doxycycline monohydrate 100 mg 100 mg PO BID #20 caps 11/01/24 capsule prednisone 20 mg tablet See Taper PO QDAY 5 days #5 tabs 11/01/24 Allergies Allergy/AdvReac Type Severity Reaction Status Date / Time amoxicillin Allergy Severe Rash Verified 11/01/24 01:09 cephalexin Allergy Severe Rash Verified 11/01/24 01:09 adhesive tape Allergy Intermediate Rash Verified 11/01/24 01:09 bee venom protein (honey bee) Allergy Intermediate Anaphylaxis Verified 11/01/24 01:09 Review of Systems Review of Systems Systems Reviewed: All systems reviewed, normal except as documented Constitutional Constitutional: Reports system reviewed and no additional complaints, except as documented and Reports as per HPI Eyes Eyes: Reports system reviewed and no additional complaints, except as documented and Reports as per HPI Cardiovascular Cardiovascular: Reports system reviewed and no additional complaints, except as documented and Reports as per HPI Respiratory Respiratory: Reports system reviewed and no additional complaints, except as documented and Reports as per HPI Gastrointestinal Gastrointestinal: Reports system reviewed and no additional complaints, except as documented and Reports as per HPI Neurologic Neurologic: Reports system reviewed and no additional complaints, except as docu mented and Reports as per HPI Past Medical History Past Medical History NEUROLOGIC: 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); Negative Seizures CARDIAC: Positive Cardiac Disorders and Hypertension; Negative Hypercholesterolemia or Congestive Heart Failure RESPIRATORY: Positive Asthma; Negative Chronic Obstructive Pulmonary Disease (COPD) GASTROINTESTINAL: Positive Gastrointestinal Disorders, Gall Bladder Disease, Colitis, Ulcerative Colitis, Ulcer and Obesity; Negative Hepatitis or Colorectal Cancer GENITOURINARY: Positive Kidney Stones; Negative Genitourinary Disorders, Renal Disease or Prostate Cancer REPRODUCTIVE: Positive Previous Pregnancies; Negative Breast Cancer or Testicular Cancer MUSCULOSKELETAL: Positive Musculoskeletal Disorders and Arthritis; Negative Bone Cancer ENDOCRINE: Positive Endocrine Disorders and Diabetes Mellitus Type 2 (pre); Negative Diabetes Mellitus Type 1 HEMATOLOGIC: Negative Blood Disorders, Anemia or Sickle Cell Disease PSYCHO/SOCIAL: Positive Anxiety OTHER HISTORY: Positive Hospitalization; Negative Autoimmune Disease, Down Syndrome, Developmental Delay, Shingles, Falls, Blood Transfusions, Blood Transfusion Reaction, Anesthesia Reactions, Organ Transplant, Chemotherapy, Radiation Therapy, Hyperbaric Therapy, MRSA, VRSA, Vancomycin-Resistant Enterococci, Human Immunodeficiency Virus (HIV), Chicken Pox, Measles, Mumps, Rubella ([place] Measles), Pertussis, Clostridium Difficile, Cancer, Breast Cancer, Cervical Cancer, Colorectal Cancer, Lung Cancer, Ovarian Cancer, Prostate Cancer or Testicular Cancer Family History FAMILY HISTORY: Positive Family Cardiac Disorders and Family Surgery; Negative Family Psychiatric Problems, Family Respiratory Disorders, Family Gastrointestinal Problems, Family Cancer or Family Anesthesia Reaction Surgical History SURGICAL: Positive Arthroscopy (right knee x2), Tubal Ligation and Section (x3); Negative Organ Transplant Social History SMOKING STATUS: Never smoker SECOND HAND EXPOSURE: No SUBSTANCE USE: does not use ED Exam General Limitations: Present no limitations General appearance: Present alert, in no apparent distress and other (That is awake alert oriented not in distress nontoxic looking) Head Head exam: Present atraumatic; Absent normocephalic or normal inspection Eye Eye exam: Present normal appearance, PERRL and EOMI ENT ENT exam: Present normal exam, normal oropharynx, mucous membranes moist and other (HEENT exam is normal no drooling of saliva no throat or facial swelling no muffled voice) Neck Neck exam: Present normal inspection, full ROM, trachea midline, tenderness and other (Mild tenderness on the anterior side of the neck near the chin with mild redness and swelling suggestive of local reaction due to spider bite); Absent meningismus, lymphadenopathy or thyromegaly Chest Chest inspection: Present normal inspection and symmetric chest wall rise; Absent tenderness Respiratory Respiratory exam: Present normal lung sounds bilaterally; Absent respiratory distress, wheezes, stridor, accessory muscle use or prolonged expiratory phase Cardiovascular Cardiovascular exam: Present regular rate, normal rhythm and normal heart sounds; Absent bradycardia, tachycardia, irregular rhythm, systolic murmur or diastolic murmur Abdominal Exam Abdominal exam: Present soft and normal bowel sounds Extremities Exam Extremities exam: Present normal inspection and full ROM Back Exam Back exam: Present normal inspection and full ROM Neurological Exam Neurological exam: Present alert, oriented X3, CN II-XII intact, normal gait and reflexes normal; Absent motor sensory deficit Psychiatric Psychiatric exam: Present normal affect and normal mood Skin Skin exam: Present warm, dry, intact, normal color and other (No cellulitis no abscess no rash) Course Quality Measures none Orders Category Date Time Status Dexamethasone Inj [Decadron Inj] Med 11/01/24 01:37 Discontinued 10 mg IM X1 ONE DiphenhydrAMINE [Benadryl] Med 11/01/24 01:37 Discontinued 50 mg PO X1 ONE Famotidine [Pepcid] Med 11/01/24 01:37 Discontinued 40 mg PO X1 ONE Ibuprofen Tab [Motrin Tab] Med 11/01/24 01:37 Discontinued 800 mg PO X1 ONE Vital Signs Vital signs: Vital Signs Temperature 98.3 F 11/01/24 01:03 Pulse Rate 96 11/01/24 01:03 Respiratory Rate 18 11/01/24 01:03 Blood Pressure 135/93 H 11/01/24 01:03 Pulse Oximetry (%) 97 11/01/24 01:03 Oxygen Delivery Method Room Air 11/01/24 01:03 Oxygen saturation is 97% in room air Animal Bite MDM Narrative MDM Narrative:: This is a case of 34-year-old female who came in in the emergency room due to pain on the anterior neck swelling and redness 2 hours prior to arrival in the emergency room secondary to spider bite patient has no drooling of saliva patient can speak full sentences no facial or throat swelling no throat pain no rash persistence of the symptoms thus patient decided to sought consult here in the emergency ROOM physical examination patient is awake alert oriented not in distress nontoxic looking excellent skin turgor no facial or throat swelling no skin rash HEENT exam is normal and unremarkable no drooling of saliva patient can speak full sentences no muffled voice patient noted to have some mild tenderness on the right anterior neck near the chin with some redness and mild swelling no crepitation no deformity lungs sound is clear no crackles no rales no retraction no stridor no facial or throat swelling the rest of the physical examination neurological exam is normal and unremarkable no signs and symptoms of angioedema or anaphylaxis based on my physical examination and history patient noted to have local reaction of the spider bite patient was given dexamethasone Benadryl and Pepcid and ibuprofen for pain patient condition markedly improved the redness was resolved the swelling was subsided patient will follow-up with PCP in 2 days for reevaluation and for any recurrence persistent worsening symptoms return to the emergency room immediately or call 911 Patient was discharged with comfortable condition walking with stable gait. Patient verbalized no further complains explained diagnosis and answered patient question. Patient is comfortable with the proposed management plan including the need to follow up with his/her primary care physician and any specialist if applicable Discussed patient for any urgent condition or worsening sx, He/She needed to go to emergency room immediately or call 911. Patient acknowledge the responsibility to follow up as instructed and to monitor her/his symptoms. For any persistence of the symptoms for more than 3-5 days return precaution advised. Discussed the result of the test and was given printed discharge instruction Patient data External records reviewed:: [facility] previous records Clinical information provided by:: patient Social determinants that could affect healthcare access:: none Patient has the following chronic illnesses:: None How is presenting disease/condition affected by chronic disease/condition?: no chronic disease Evaluation data The following diagnostics were reviewed and interpreted by me:: other (specify) (None) Lab and/or radiology exams considered but not ordered:: None Interpretation Summary: None Medications / Prescriptions Medications or Prescriptions considered but not ordered:: Given Medication administrations:: Medication Administration History Discontinued Medications Dexamethasone Sodium Phosphate (Dexamethasone Sod Phos Inj 10 Mg/Ml Vial) 10 mg IM X1 ONE Stop: 11/01/24 01:38 Diphenhydramine HCl (Diphenhydramine Elix 25 Mg/10 Ml Udc) 50 mg PO X1 ONE Stop: 11/01/24 01:38 Famotidine (Famotidine 20 Mg Tablet) 40 mg PO X1 ONE Stop: 11/01/24 01:38 Ibuprofen (Ibuprofen Tab 400 Mg Tablet) 800 mg PO X1 ONE Stop: 11/01/24 01:38 Given Consultations Consultation(s) initiated? (list below): No Diagnosis Differential diagnosis animal bite: other (Spider bite) Most likely diagnosis given after review of the tests above:: Spider bite local reaction Admission Indicated Admission indicated?: not indicated Explain why admission is indicated or not indicated:: Not indicated Admission Request Was there a request for admission?: No Admission Attestation Admission request attestation: Not indicated Disposition Plan Disposition Plan: Discharge Discharge Attestation Discharge Attestation: The patient and all family members were given an opportunity to ask questions and understood the discharge instructions. Discharge instructions specifically effects, indications for sooner follow up or return to the emergency department, and the expected course of current diagnosis. Patient condition: Stable Discharge Plan Plan Patient Disposition: HOME (Self Care) Patient condition on transfer: Stable Prescriptions/Referrals Prescriptions/Med Rec: New doxycycline monohydrate 100 mg capsule 100 mg PO BID Qty: 20 0RF prednisone 20 mg tablet See Taper PO QDAY 5 Days Qty: 5 0RF Taper: Prednisone Taper 20 mg DAILY for 2 Days and 0 Hour 10 mg DAILY for 2 Days and 0 Hour 5 mg DAILY for 7 Days and 0 Hour diphenhydramine HCl 25 mg capsule 25 mg PO TID PRN (Reason: allergic reaction) Qty: 20 0RF No Action lisinopril 10 mg Tablet 10 mg PO QDAY hydrochlorothiazide 12.5 mg Tablet 25 mg PO QAM omeprazole 40 mg capsule,delayed release(DR/EC) 20 mg PO QDAY benzonatate 100 mg capsule 100 mg PO TID Qty: 14 0RF ondansetron 4 mg tablet,disintegrating 4 mg PO Q8H PRN (Reason: nausea and vomiting) Qty: 20 0RF dicyclomine 20 mg tablet 20 mg PO TID PRN (Reason: abdominal pain) Qty: 20 0RF sulfamethoxazole-trimethoprim [Bactrim DS] 800-160 mg tablet 1 tab PO BID Qty: 14 0RF ibuprofen 800 mg tablet 800 mg PO TID PRN (Reason: pain) Qty: 30 0RF Problem List Clinical Impression: Nonvenomous spider bite Patient/Caregiver Discharge Instructions Education Materials: ED Insect Sting, Local Reaction, ED Bite Spider Non Poisonous Additional Instructions: Follow-up with your primary care physician in 2 days for reevaluation worsening symptoms or any emergent concern call 911 or go to the nearest emergency room take your medication as directed keep the area clean and dry Print Language: Serbian Stand Alone Forms: Irish Award Info., Patient Portal Info Letter PA/[employer] Supervising Physician PA/[employer] MANA[employer] Supervising Physician: Dr. Camacho
[2024-11-01] MEDS: DEXAMETHASONE SOD PHOS INJ 10 MG/ML VIAL IM (01:50)
[2024-11-01] MEDS: IBUPROFEN TAB 400 MG TABLET 800 MG PO (01:50)
[2024-11-01] MEDS: DiphenhydrAMINE ELIX 25 MG/10 ML UDC 50 MG PO (01:50)
[2024-11-01] MEDS: FAMOTIDINE 20 MG TABLET 40 MG PO (01:50)
== END 2024-11-01 01:55 | disposition home or self-care (01) ==
LOC: SERX 01:47
PROVIDERS: Emergency Provider Emergency Medicine; PCP Nurse Practitioner
DX: S10.96XA Insect bite of unspecified part of neck, initial encounter (principal); W57.XXXA Bitten or stung by nonvenomous insect and other nonvenomous arthropods, initial encounter
CPT/HCPCS: 96372; 99283; J1100; A9270

== ENCOUNTER 2024-11-01 13:34 | Emergency (ER) | payer MEDICAID, SELFPAY ==
--- NOTE | 2024-11-01 13:47 | PD.EDDIZZY ---
ED Dizzyness RME/HPI General Chief Complaint: General Adult/Misc Complain Stated Complaint: DIZZY, NUMBNESS/TINGLING R) ARM/LEG/FACE, LKW 1315 Time Seen by Provider: 11/01/24 13:40 Arrival date/time: 11/01/24 13:34 Pt seen by me at 1340. Stroke alert called. Limitations: no limitations RME / HPI RME / HPI Narrative: 34 year old female with history of hypertension presents to the ED for evaluation of right sided numbness and weakness beginning at 13:35h today while sitting in her car. Accompanied by word finding difficulty, slurred speech, and right facial numbness. Reportedly had experienced similar symptoms in the last to lesser severity. Denies fevers, chills, sweats, headache. Related Data Home Medications ?Medication ?Instructions ?Recorded ?Confirmed hydrochlorothiazide 12.5 mg tablet 25 mg PO QAM 11/08/22 11/01/24 lisinopril 10 mg tablet 10 mg PO QDAY 11/08/22 11/01/24 atorvastatin 40 mg tablet 40 mg PO QDAY 11/01/24 11/01/24 sertraline 100 mg tablet 100 mg PO QDAY 11/01/24 11/01/24 Previous Rx's ?Medication ?Instructions ?Recorded benzonatate 100 mg capsule 100 mg PO TID #14 caps 04/20/24 dicyclomine 20 mg tablet 20 mg PO TID PRN abdominal pain 09/07/24 #20 tabs diphenhydramine HCl 25 mg capsule 25 mg PO TID PRN allergic reaction 11/01/24 #20 caps doxycycline monohydrate 100 mg 100 mg PO BID #20 caps 11/01/24 capsule Allergies Allergy/AdvReac Type Severity Reaction Status Date / Time amoxicillin Allergy Severe Rash Verified 11/01/24 13:37 cephalexin Allergy Severe Rash Verified 11/01/24 13:37 adhesive tape Allergy Intermediate Rash Verified 11/01/24 13:37 bee venom protein (honey bee) Allergy Intermediate Anaphylaxis Verified 11/01/24 13:37 Review of Systems Review of Systems Systems Reviewed: All systems reviewed, normal except as documented Past Medical History Past Medical History NEUROLOGIC: Positive Neurological Disorders and Transient Ischemic Attacks (TIA) CARDIAC: Positive Cardiac Disorders and Hypertension RESPIRATORY: Positive Asthma GASTROINTESTINAL: Positive Gastrointestinal Disorders, Gall Bladder Disease, Colitis, Ulcerative Colitis, Ulcer and Obesity GENITOURINARY: Positive Kidney Stones REPRODUCTIVE: Positive Previous Pregnancies MUSCULOSKELETAL: Positive Musculoskeletal Disorders and Arthritis ENDOCRINE: Positive Endocrine Disorders and Diabetes Mellitus Type 2 (pre) PSYCHO/SOCIAL: Positive Anxiety OTHER HISTORY: Positive Hospitalization Family History FAMILY HISTORY: Positive Family Cardiac Disorders and Family Surgery Surgical History SURGICAL: Positive Arthroscopy, Tubal Ligation and Section Social History SMOKING STATUS: Never smoker SECOND HAND EXPOSURE: No SUBSTANCE USE: does not use ED Exam General Limitations: Present no limitations General appearance: Present alert and in no apparent distress Head Head exam: Present atraumatic and normocephalic Eye Eye exam: Present normal appearance, PERRL and EOMI ENT ENT exam: Present normal oropharynx, mucous membranes moist and other (rigth nasolabial fold diminished ) Neck Neck exam: Present normal inspection, full ROM and trachea midline Chest Chest inspection: Present normal inspection and symmetric chest wall rise Respiratory Respiratory exam: Present normal lung sounds bilaterally Cardiovascular Cardiovascular exam: Present regular rate, normal rhythm and normal heart sounds Abdominal Exam Abdominal exam: Present soft and normal bowel sounds Extremities Exam Extremities exam: Present normal inspection and full ROM Back Exam Back exam: Present normal inspection and full ROM Neurological Exam Neurological exam: Present alert, oriented X3, CN II-XII intact and other (normal rapid finger alternating abnormal on the right hand, leg strength is normal, right arm and hand strength is 4/5. ) Psychiatric Psychiatric exam: Present normal affect and normal mood Skin Skin exam: Present warm, dry, intact and normal color Course Quality Measures Suspected type of Stroke: Non Acute Last known well (date): 11/01/24 Last known well (time): 13:35 Tenecteplase given: Reason(s) TPA not given: Stroke severity too mild (non-disabling) not given stroke Orders Category Date Time Status Bedside Blood Glucose NOW Care 11/01/24 13:50 Completed Rental Agent NOW Care 11/01/24 13:50 Completed Continuous Pulse Oximetry NOW Care 11/01/24 13:50 Completed EKG (ED ONLY) *Do not use* NOW Care 11/01/24 13:51 Completed Insert IV NOW Care 11/01/24 13:50 Completed NIH Stroke Scale now Care 11/01/24 13:50 Completed NPO NOW Care 11/01/24 13:50 Completed Neuro Check Q15MIN Care 11/01/24 13:50 Completed Nurse Swallow Screen x1 Care 11/01/24 13:50 Completed Consult to Neurology / Tele-Neurology Routine Cons 11/01/24 13:[address] angio stroke protocol Stat Exams 11/01/24 13:[address] stroke protocol Stat Exams 11/01/24 13:50 Completed EKG (ED Only) Stat Exams 11/01/24 13:49 Draft Alcohol, Blood Medical Stat Lab 11/01/24 14:00 Completed B-Type Natriuretic Peptide Stat Lab 11/01/24 14:00 Completed CBC Stat Lab 11/01/24 14:00 Completed Comprehensive Metabolic Panel Stat Lab 11/01/24 14:00 Completed Drug Screen,Urine Stat Lab 11/01/24 15:42 Completed Magnesium Stat Lab 11/01/24 14:00 Completed Partial Thromboplastin Time Stat Lab 11/01/24 14:00 Completed Prothrombin Time with INR Stat Lab 11/01/24 14:00 Completed Troponin I Stat Lab 11/01/24 14:00 Completed Urinalysis Stat Lab 11/01/24 15:42 Completed Urine Culture Stat Lab 11/01/24 15:42 Received Aspirin Med 11/01/24 14:56 Discontinued 325 mg PO X1 ONE Sodium Chloride 0.9% 1000 ml [Ns] 1,000 ml Med 11/01/24 14:00 Discontinued IV 100 mls/hr Vital Signs Vital signs: Vital Signs Pulse Rate 109 H 11/01/24 13:50 Respiratory Rate 16 11/01/24 13:50 Blood Pressure 158/110 H 11/01/24 13:50 Pulse Oximetry (%) 96 11/01/24 13:50 Oxygen Delivery Method Room Air 11/01/24 13:50 Pulse ox is 96% on room air which is adequate. Dizziness MDM Narrative MDM Narrative:: Olga Ferrara am scribing for and in the presence of Dr. Martinez. Patient data External records reviewed:: [facility] previous records (I reviewed ED visit from visit earlier today for spider bite ) Clinical information provided by:: patient Social determinants that could affect healthcare access:: none Patient has the following chronic illnesses:: HTN How is presenting disease/condition affected by chronic disease/condition?: no chronic disease Evaluation data The following diagnostics were reviewed and interpreted by me:: lab results, radiology exam(s) and EKG tracing(s) (11/01/2024 @ 14:19. NSR, rate 86, no acute ischemic changes. ) Lab and/or radiology exams considered but not ordered:: None Interpretation Summary: Ordering Physician: Lalo Martinez MD Date of Service: 11/01/24 Procedure(s): CT stroke protocol Accession Number(s): [id number] cc: Lalo Martinez MD; Bruce Coughlin MD~ Examination: CT brain head without contrast. 2-D sagittal coronal reconstructions Date and time of exam:November 01, 2024, 1355 hrs. Indications: Stroke alert, onset focal neurologic deficit including right-sided body weakness today CTDI: vol (mGy):47.3 DLP: (mGycm):929 Technique: Multiple CT axial sections of the brain have been obtained, 5 mm slice thickness. Contrast has not been administered. 2-D sagittal, coronal reconstructions have been obtained Low dose protocols were performed. One or more of the following dose reduction techniques were used; automated exposure control, adjustment of the mA and/or KV according to patient size, use of iterative reconstruction technique. Findings: No significant ventricular enlargement. Intra-axial or extra-axial hemorrhage density is not seen. No mass effect or midline shift Basal cisterns are not remarkable. Fourth ventricle is midline. Cranial vault intact. Impression: Negative for acute hemorrhage, mass effect or midline shift As clinically warranted, brain MRI MRA without contrast, stroke protocol, would best assess for demyelinating disease, acute ischemic change Dictated By: Bruce Coughlin MD Signed By: <Electronically signed by Bruce Coughlin MD in OV> 11/01/24 1401 Ordering Physician: Lalo Martinez MD Date of Service: 11/01/24 Procedure(s): CT angio stroke protocol Accession Number(s): [id number] cc: Lalo Martinez MD; Bruce Coughlin MD; Sb Orta MD~ Examination: CTA carotids with intravenous contrast CTA brain, head with intravenous contrast. 2-D sagittal, coronal reconstructions. 3-D reconstructions. Exam date and time: November 01, 2024, 1424 hrs. Indications: Stroke alert, onset right-sided body weakness today CTDI: vol (mGy) 42.7 DLP: (mGycm) 513 Technique: Multiple CTA axial brain, head carotid images post intravenous contrast injection 100 cc, Isovue-370. 2-D sagittal, coronal reconstructions. 3-D reconstructions, 3-D post processing including vascular maximum intensity projection images. Low dose protocols were performed. One or more of the following dose reduction techniques were used; automated exposure control, adjustment of the mA and/or KV according to patient size, use of iterative reconstruction technique. Findings: Study is significantly technically limited. There is patient motion on the neck portions of the study and contrast bolus timing error with relatively poor contrast opacification of the cerebral vessels No critical carotid stenoses in the neck The right vertebral artery in the neck is dominant with no critical stenoses No definite large vessel cerebral occlusions or thrombus Impression: Significantly technically limited study as above Recommend brain MRI MRA without contrast follow-up Dictated By: Bruce Coughlin MD Signed By: <Electronically signed by Bruce Coughlin MD in OV> 11/01/24 1545 Medications / Prescriptions Medications or Prescriptions considered but not ordered:: None Medication administrations:: Medication Administration History Discontinued Medications Aspirin (Aspirin 325 Mg Tablet) 325 mg PO X1 ONE Stop: 11/01/24 14:57 Last Admin: 11/01/24 15:40 Dose: 325 mg Documented By: ALYSSA Sodium Chloride (Ns) 1,000 mls @ 100 mls/hr IV .Q10H [facility] Stop: 11/02/24 13:59 Last Admin: 11/01/24 14:41 Dose: 100 mls/hr Documented By: ALYSSA See above Consultations Consultation(s) initiated? (list below): Yes Consultation #1 (Physician, Specialty, Details): I spoke with teleneurologist Dr. Carter. States patient is not a TNK candidate. Advised starting the patient on Aspirin daily and have an MRI performed as an outpatient. Time: 14:27 Diagnosis Most likely diagnosis given after review of the tests above:: Paresthesia Admission Indicated Admission indicated?: not indicated Admission Request Was there a request for admission?: No Disposition Plan Disposition Plan: Discharge Discharge Attestation Discharge Attestation: The patient and all family members were given an opportunity to ask questions and understood the discharge instructions. Discharge instructions specifically effects, indications for sooner follow up or return to the emergency department, and the expected course of current diagnosis. Patient condition: Stable Discharge Plan Plan Patient Disposition: HOME (Self Care) Prescriptions/Referrals Prescriptions/Med Rec: No Action lisinopril 10 mg Tablet 10 mg PO QDAY hydrochlorothiazide 12.5 mg Tablet 25 mg PO QAM benzonatate 100 mg capsule 100 mg PO TID Qty: 14 0RF dicyclomine 20 mg tablet 20 mg PO TID PRN (Reason: abdominal pain) Qty: 20 0RF doxycycline monohydrate 100 mg capsule 100 mg PO BID Qty: 20 0RF diphenhydramine HCl 25 mg capsule 25 mg PO TID PRN (Reason: allergic reaction) Qty: 20 0RF atorvastatin 40 mg tablet 40 mg PO QDAY Patient Comments: TAKE 1 TABLET BY MOUTH EVERY DAY sertraline 100 mg tablet 100 mg PO QDAY Patient Comments: TAKE 1 TABLET BY MOUTH EVERY DAY Problem List Clinical Impression: Paresthesia Patient/Caregiver Discharge Instructions Education Materials: ED Paraesthesias Additional Instructions: Follow up with your doctor for referral to see a neurologist and have an MRI/MRA performed. Start taking 81mg Aspirin once daily. You can return to the emergency department sooner if symptoms worsen or if you notice any new, concerning issues. Print Language: Greek Stand Alone Forms: Irish Award Info., Patient Portal Info Letter
--- NOTE | 2024-11-01 13:49 | EKG_ITS ---
[facility] Test Date: 2024-11-01 Pat Name: ZAIN ZUNIGA Department: Room: - Gender: Female Technical Support Specialist: : 1990 Requested By: Lalo Jerry Order Number: [id number] Reading MD: Lalo Jerry Measurements Intervals [place] Rate: 86 P: 42 VA: 130 QRS: 50 QRSD: 79 T: 30 QT: 349 QTc: 419 Interpretive Statements SINUS RHYTHM Compared to ECG 05/14/2024 14:23:19 Sinus tachycardia no longer present /store/S0/[id number]/ecg/[id number].pdf
[2024-11-01 13:50] VITALS: BP 158/110; PULSE 109; RESP 16; O2SAT 96
--- NOTE | 2024-11-01 13:50 | XR_ITS ---
Examination: CTA carotids with intravenous contrast CTA brain, head with intravenous contrast. 2-D sagittal, coronal reconstructions. 3-D reconstructions. Exam date and time: November 01, 2024, 1424 hrs. Indications: Stroke alert, onset right-sided body weakness today CTDI: vol (mGy) 42.7 DLP: (mGycm) 513 Technique: Multiple CTA axial brain, head carotid images post intravenous contrast injection 100 cc, Isovue-370. 2-D sagittal, coronal reconstructions. 3-D reconstructions, 3-D post processing including vascular maximum intensity projection images. Low dose protocols were performed. One or more of the following dose reduction techniques were used; automated exposure control, adjustment of the mA and/or KV according to patient size, use of iterative reconstruction technique. Findings: Study is significantly technically limited. There is patient motion on the neck portions of the study and contrast bolus timing error with relatively poor contrast opacification of the cerebral vessels No critical carotid stenoses in the neck The right vertebral artery in the neck is dominant with no critical stenoses No definite large vessel cerebral occlusions or thrombus Impression: Significantly technically limited study as above Recommend brain MRI MRA without contrast follow-up
--- NOTE | 2024-11-01 13:50 | XR_ITS ---
Examination: CT brain head without contrast. 2-D sagittal coronal reconstructions Date and time of exam:November 01, 2024, 1355 hrs. Indications: Stroke alert, onset focal neurologic deficit including right-sided body weakness today CTDI: vol (mGy):47.3 DLP: (mGycm):929 Technique: Multiple CT axial sections of the brain have been obtained, 5 mm slice thickness. Contrast has not been administered. 2-D sagittal, coronal reconstructions have been obtained Low dose protocols were performed. One or more of the following dose reduction techniques were used; automated exposure control, adjustment of the mA and/or KV according to patient size, use of iterative reconstruction technique. Findings: No significant ventricular enlargement. Intra-axial or extra-axial hemorrhage density is not seen. No mass effect or midline shift Basal cisterns are not remarkable. Fourth ventricle is midline. Cranial vault intact. Impression: Negative for acute hemorrhage, mass effect or midline shift As clinically warranted, brain MRI MRA without contrast, stroke protocol, would best assess for demyelinating disease, acute ischemic change
[2024-11-01 14:05] VITALS: BMI 56.0
--- NOTE | 2024-11-01 14:05 | PC.NURSE ---
pt came in with c/o right arm and face numbness. pt states that it started 5 min prior to arrival. pt reports not remembering that she drove to her moms house or here to er. slight weakness noted to r arm. no weakness noted to legs. eyes perrl. no facial droop. speech clear. pt reports numbness to r face and r arm. pt alert and oriented x 3.
--- NOTE | 2024-11-01 14:17 | PC.NURSE ---
pt back from ct
--- NOTE | 2024-11-01 14:30 | ESCONSULT_ITS ---
Tele Neuro Consultation Consultation Date 11/01/24 Most Recent Vital Signs Last Vital Signs Pulse 109 H 11/01/24 13:50 Resp 16 11/01/24 13:50 BP 158/110 H 11/01/24 13:50 Pulse Ox 96 11/01/24 13:50 O2 Del Method Room Air 11/01/24 13:50 Consultation Narrative [facility] Tele[facility]rology [facility] Patient Name:???Keira Masters Date of :???1990 Date of Service:???11/01/2024 13:48:18 Diagnosis:?R29.810 - Facial numbness/ Facial weakness Impression: ?34 year old female with right face and arm numbness. NIHSS 2. CT Head negative for bleed. Not a candidate for thrombolysis given minimal symptoms . CTA performed and no evidence of LVO on personal review. The patient does have a previous history of TIA and has had a normal MRI in 11/2023. Given the previously negative work up for similar symptoms I would simply recommend a repeat MRI (which may be done in the OP setting). I would recommend starting an ASA pending that study. Our recommendations are outlined below. Recommendations: ? Initiate or continue Aspirin 81 MG daily ?MRI Brain. Sign Out: ? Discussed with Emergency Department Provider Advanced Imaging:Advanced imaging has been ordered. Results pending. Metrics: Last Known Well: 11/01/2024 13:00:00 Dispatch Time: 11/01/2024 13:48:18 Arrival Time: 11/01/2024 13:34:00 Initial Response Time: 11/01/2024 13:55:23Symptoms: right sided numbness. . Initial patient interaction: 11/01/2024 13:58:44 NIHSS Assessment Completed: 11/01/2024 14:04:41Patient is not a candidate for Thrombolytic. Thrombolytic Medical Decision: 11/01/2024 14:05:43Patient was not deemed candidate for Thrombolytic because of following reasons: Stroke severity too mild (non-disabling) . CT Head: I personally reviewed all the CT images that were available to me and it showed: no evidence of hemorrhage. Primary Provider Notified of Diagnostic Impression and Management Plan on: 11/01/2024 14:29:27 History of Present Illness:Patient is a 34 year old Female. Patient was brought by private transportation with symptoms of right sided numbness. . The patient has right arm and facial numbness. This started in the upper arm, then spread to the hand and face. She feels weak in the arm. She had similar events last year but the symptoms were not as severe. There is no headaches. She does have some dizziness. She does have mild blurred vision. She initially said the numbness began 30 minutes prior to arrival. She then later gave a time of 140pm (which was after arrival). ? Past Medical History: ?Hypertension ?There is no history of Diabetes Mellitus ?There is no history of Hyperlipidemia Medications: No Anticoagulant use? No Antiplatelet use Reviewed EMR for current medications Allergies:? Reviewed Social History: Smoking: No Drug Use: No Family History: There is no family history of premature cerebrovascular disease pertinent to this consultation ROS : 14 Points Review of Systems was performed and was negative except mentioned in HPI. Past Surgical History: There Is No Surgical History Contributory To Today?s Visit ? Examination: BP(158/110),?Pulse(109),?Blood Glucose(154) 1A: Level of Consciousness - Alert; keenly responsive?+ 0 1B: Ask Month and Age - 1 Question Right?+ 1 1C: Blink Eyes & Squeeze Hands - Performs Both Tasks?+ 0 2: Test Horizontal Extraocular Movements - Normal?+ 0 3: Test Visual Wilkins - No Visual Loss?+ 0 4: Test Facial Palsy (Use Grimace if Obtunded) - Normal symmetry?+ 0 5A: Test Left Arm Motor Drift - No Drift for 10 Seconds?+ 0 5B: Test Right Arm Motor Drift - No Drift for 10 Seconds?+ 0 6A: Test Left Leg Motor Drift - No Drift for 5 Seconds?+ 0 6B: Test Right Leg Motor Drift - No Drift for 5 Seconds?+ 0 7: Test Limb Ataxia (FNF/Heel-Dumont) - No Ataxia?+ 0 8: Test Sensation - Mild-Moderate Loss: Less Sharp/More Dull?+ 1 9: Test Language/Aphasia - Normal; No aphasia?+ 0 10: Test Dysarthria - Normal?+ 0 11: Test Extinction/Inattention - No abnormality?+ 0 NIHSS Score:?2 NIHSS Free Text :?decreased sensation right face and arm. Pre-Morbid Modified Hardin Scale:0 Points = No symptoms at all Spoke with :?Dr. Martinez, ED Physician This consult was conducted in real time using interactive audio and video technology. Patient was informed of the technology being used for this visit and agreed to proceed. Patient located in hospital and provider located at home/office setting. Patient is being evaluated for possible acute neurologic impairment and high probability of imminent or life-threatening deterioration. I spent total of 45 minutes providing care to this patient, including time for face to face visit via telemedicine, review of medical records, imaging studies and discussion of findings with providers, the patient and/or family. Dr Jonny Carter [facility] For Inpatient follow-up with [facility] physician please call [facility] at . As we are not an outpatient service for any post hospital discharge needs please contact the hospital for assistance. If you have any questions for the [facility] physicians or need to reconsult for clinical or diagnostic changes please contact us via [facility] at . Signature :?Jonny Carter ?
[2024-11-01 14:31] LABS: Basophils # (Auto) 0.0 Thou/mm3 (0.0-0.2); Basophils % (Auto) 0 % (0-2.5); Eosinophils # (Auto) 0.0 Thou/mm3 (0.0-0.5); Eosinophils % (Auto) 0 % (0-10); Hematocrit 38.7 % (36.0-46.0); Hemoglobin 12.7 g/dL (12.0-16.0); Immature Granulocytes Auto 0.03 Thou/mm3 (0.00-0.00); Lymphocytes # (Auto) 1.0 Thou/mm3 (1.0-4.8); Lymphocytes % (Auto) 10 % (10-50); Mean Corpuscular HGB Conc 32.8 g/dl (31.0-37.0); Mean Corpuscular Hemoglobin 27.3 pg (25.0-35.0); Mean Corpuscular Volume 83 fL (80-100); Monocytes # (Auto) 0.1 Thou/mm3 (0.0-0.8); Monocytes % (Auto) 1 % (0-12); Neutrophils # (Auto) 8.4 Thou/mm3 (1.8-7.7); Neutrophils % (Auto) 88 % (37-80); Nucleated Red Blood Cell # 0.00 Thou/mm3 (0.00-0.00); Nucleated Red Blood Cell % 0 /100 WBC (0); Platelet Count 293 Thou/mm3 (140-440); RDW Standard Deviation 41.5 fL (36.4-46.3); Red Blood Count 4.65 Miln/mm3 (4.00-5.20); White Blood Count 9.5 Thou/mm3 (3.6-11.0)
[2024-11-01] MEDS: SODIUM CHLORIDE 0.9% 1000 ML 1,000 ML 100 ML IV (14:41)
[2024-11-01 14:44] LABS: INR 1.0 (0.9-1.3); Partial Thromboplastin Time 27.7 Seconds (22.0-36.0); Prothrombin Time 10.6 Seconds (9.0-12.2)
[2024-11-01 14:50] LABS: Alanine Aminotransferase 11 U/L (10-49); Albumin, Serum 4.2 gm/dL (3.5-5.0); Albumin/Globulin Ratio 1.8 (1.2-2.2); Alcohol, Blood Medical < 3.0 mg/dL (0-10.0); Alkaline Phosphatase 74 U/L (46-116); Anion Gap 11 (7-16); Aspartate Amino Transferase 11 U/L (0-34); BUN/Creatinine Ratio 11 Ratio (12-20); Bilirubin,Total 0.5 mg/dL (0.3-1.2); Blood Urea Nitrogen 9 mg/dL (9-23); Calcium 9.4 mg/dL (8.3-10.6); Calcium (Corrected) 9.4 mg/dL (8.5-10.1); Carbon Dioxide 21.1 mMol/L (20.0-31.0); Chloride 110 mMol/L (98-107); Creatinine (Component) 0.8 mg/dL (0.6-1.3); Estimated Creatinine Clearance 160.9 mL/min (>60); Globulin 2.4 gm/dL (2.3-3.5); Glucose 164 mg/dL (74-106); Magnesium 1.8 mg/dL (1.6-2.6); Osmolality,Calculated 285 (275-295); Potassium 4.0 mMol/L (3.4-5.1); Sodium 142 mMol/L (136-145); Total Protein 6.6 gm/dL (5.7-8.2); Troponin I < 0.002 ng/mL (0.0-0.045); eGFR > 60 See Note
[2024-11-01 15:00] LABS: B-Type Natriuretic Peptide 27 pg/mL (0-100)
[2024-11-01 16:02] LABS: Collection Type, Urine Catheter; WBC,Urine 0 /hpf (0-5)
[2024-11-01 16:45] LABS: Amphetamine/Methamp Scrn,U Negative (Negative); Barbiturate Screen,Urine Negative (Negative); Benzodiazepines Screen,Urine Negative (Negative); Benzoylecgonine Screen, Ur Negative (Negative); Fentanyl Screen,Urine Negative (Negative); Opiate Screen,Urine Negative (Negative); THC Screen,Urine Negative (Negative)
[2024-11-01 16:47] LABS: Bacteria,Urine Rare; Bilirubin,Urine Negative (Negative); Blood,Urine Negative (Negative); Clarity,Urine Clear (Clear/Hazy); Color,Urine Lt-Yellow (Lt Yel-Yel); Glucose, Urine Negative (Negative); Ketones,Urine Negative (Negative); Leukocyte Esterase,Urine Negative (Negative); Nitrite,Urine Negative (Negative); PH,Urine 6.5 (5.0-7.0); Protein,Urine Trace (Neg - Trace); RBC,Urine 3 /hpf (0-3); Squamous Epithelial Cell,Urine 12 /hpf (0-5); Urobilinogen,Urine Negative mg/dL (0.0-1.0)
[2024-11-01 16:58] LABS: Specific Gravity,Urine 1.015 (1.001-1.035)
== END 2024-11-01 16:26 | disposition home or self-care (01) ==
PROVIDERS: Emergency Provider Family Medicine; PCP Family Medicine
DX: R20.2 Paresthesia of skin (principal); R53.1 Weakness; R42 Dizziness and giddiness; R20.0 Anesthesia of skin; R47.81 Slurred speech; I10 Essential (primary) hypertension; Z86.73 Personal history of transient ischemic attack (TIA), and cerebral infarction without residual deficits
CPT/HCPCS: 36415; 70450; 70496; 70498; 80053; 80307; 80320; 81001; 83735; 83880; 84484; 85025; 85610; 85730; 87086; 93005; 99284; A4649; J7030; Q9967; A9270; G0480

== ENCOUNTER 2024-11-30 16:44 | Emergency (ER) | payer MEDICAID, SELFPAY ==
[2024-11-30 16:57] VITALS: BP 113/76; PULSE 91; RESP 20; TEMP 37.3; O2SAT 98; BMI 54.8
--- NOTE | 2024-11-30 17:11 | XR_ITS ---
Examination: Hand, left 2 views Examination: Left hand AP lateral 2 views Date and time: November 30, 2024, 1714 hrs. Indications: Patient fell today with injury to the hand, hand pain Findings: No acute fracture No dislocation No foreign body Impression: No acute fracture
--- NOTE | 2024-11-30 17:11 | XR_ITS ---
Examination: Knee, right , 3 views Technique: Knee AP, lateral, oblique 3 views Date and time of exam: November 30, 2024, 1715 hrs. Indications: Patient fell today with into the knee, knee pain. Findings: No acute fracture. Early osteoarthritis patellofemoral joint Small knee effusion Impression: No acute fracture
--- NOTE | 2024-11-30 17:11 | XR_ITS ---
Examination: Left wrist 2 views Technique one AP lateral left wrist 2 views Date and time: November 30, 2024, 1719 hrs. Indications: Patient fell today with into the wrist, wrist pain. Findings: No fracture or dislocation No foreign body Impression: No fracture or dislocation
--- NOTE | 2024-11-30 18:23 | EDNOTE_ITS ---
Upper Extremity Injury RME/HPI General Chief Complaint: Fall Stated Complaint: FALL; INJURY TO R) KNEE, L) HAND Time Seen by Provider: 11/30/24 16:49 Arrival date/time: 11/30/24 16:44 This is a case of 34-year-old female with no medical history came in in the emergency room due to fall injury history of present illness started 1 hour prior to arrival in the emergency room patient tripped and fell at the store landed on her right knee left hand and left wrist patient now complaining of pain on the right knee left hand and left wrist patient denies any head neck chest or abdominal injury there is no loss of consciousness Limitations: no limitations Related Data Home Medications ?Medication ?Instructions ?Recorded ?Confirmed hydrochlorothiazide 12.5 mg tablet 25 mg PO QAM 11/01/24 lisinopril 10 mg tablet 10 mg PO QDAY 11/08/2211/01 atorvastatin 40 mg tablet 40 mg PO QDAY 11/01/2411/01 sertraline 100 mg tablet 100 mg PO QDAY 11/01/2410/04 Previous Rx's ?Medication ?Instructions ?Recorded benzonatate 100 mg capsule 100 mg PO TID #14 caps 04/04 09/25 dicyclomine 20 mg tablet 20 mg PO TID PRN abdominal p ain 09/07/24 #20 tabs diphenhydramine HCl 25 mg capsule 25 mg PO TID PRN all ergic reaction 11/01/24 #20 caps doxycycline monohydrate 100 mg 100 mg PO BID #20 caps 11/01/24 capsule hydrocodone 5 mg-acetaminophen 325 1 tab PO Q6H PRN pa in #12 tabs 11/30/24 mg tablet Allergies Allergy/AdvReac Type Severity Reaction Status Date / Time amoxicillin Allergy Severe Rash Verified 11/30/24 16:47 cephalexin Allergy Severe Rash Verified 11/30/24 16:47 adhesive tape Allergy Intermediate Rash Verified 11/30/24 16:47 bee venom protein (honey bee) Allergy Intermediate Anaphylaxis Verified 11/30/24 16:47 Review of Systems Review of Systems Systems Reviewed: All systems reviewed, normal except as documented Constitutional Constitutional: Reports system reviewed and no additional complaints, except as documented and Reports as per HPI Cardiovascular Cardiovascular: Reports system reviewed and no additional complaints, except as documented and Reports as per HPI Respiratory Respiratory: Reports system reviewed and no additional complaints, except as documented and Reports as per HPI Gastrointestinal Gastrointestinal: Reports system reviewed and no additional complaints, except as documented and Reports as per HPI Genitourinary Genitourinary: Reports system reviewed and no additional complaints, except as documented and Reports as per HPI Musculoskeletal Musculoskeletal: Reports system reviewed and no additional complaints, except as documented and Reports as per HPI Neurologic Neurologic: Reports system reviewed and no additional complaints, except as documented Past Medical History Past Medical History NEUROLOGIC: Positive Neurological Disorders and Transient Ischemic Attacks (TIA); Negative Seizures CARDIAC: Positive Cardiac Disorders and Hypertension; Negative Hypercholesterolemia or Congestive Heart Failure RESPIRATORY: Positive Asthma; Negative Chronic Obstructive Pulmonary Disease (COPD) GASTROINTESTINAL: Positive Gastrointestinal Disorders, Gall Bladder Disease, Colitis, Ulcerative Colitis, Ulcer and Obesity; Negative Hepatitis or Colorectal Cancer GENITOURINARY: Positive Kidney Stones; Negative Genitourinary Disorders, Renal Disease or Prostate Cancer REPRODUCTIVE: Positive Previous Pregnancies; Negative Breast Cancer or Testicular Cancer MUSCULOSKELETAL: Positive Musculoskeletal Disorders and Arthritis; Negative Bone Cancer ENDOCRINE: Positive Endocrine Disorders and Diabetes Mellitus Type 2 (pre); Negative Diabetes Mellitus Type 1 HEMATOLOGIC: Negative Blood Disorders, Anemia or Sickle Cell Disease PSYCHO/SOCIAL: Positive Anxiety OTHER HISTORY: Positive Hospitalization; Negative Autoimmune Disease, Down Syndrome, Developmental Delay, Shingles, Falls , Blood Transfusions, Blood Transfusion Reaction, Anesthesia Reactions, Organ Transplant, Chemotherapy, Radiation Therapy, Hyperbaric Therapy, MRSA, VRSA, Vancomycin-Resistant Enterococci, Human Immunodeficiency Virus (HIV), Chicken Pox, Measles, Mumps, Rubella (Turkish Measles), Pertussis, Clostridium Difficile, Cancer, Breast Cancer, Cervical Cancer, Colorectal Cancer, Lung Cancer, Ovarian Cancer, Prostate Cancer or Testicular Cancer Family History FAMILY HISTORY: Positive Family Cardiac Disorders and Family Surgery; Negative Family Psychiatric Problems, Family Respiratory Disorders, Family Gastrointestinal Problems, Family Cancer or Family Anesthesia Reaction Surgical History SURGICAL: Positive Arthroscopy, Tubal Ligation and Section; Negative Organ Transplant Social History SMOKING STATUS: Never smoker SECOND HAND EXPOSURE: No SUBSTANCE USE: does not use ED Exam General Limitations: Present no limitations General appearance: Present alert, in no apparent distress and other (Is awake alert oriented not in distress nontoxic looking well-hydrated well-nourished) Head Head exam: Present atraumatic, normocephalic and normal inspection Eye Eye exam: Present normal appearance, PERRL and EOMI ENT ENT exam: Present normal exam, normal oropharynx and mucous membranes moist Neck Neck exam: Present normal inspection, full ROM and trachea midline; Absent tenderness, meningismus, lymphadenopathy or thyromegaly Chest Chest inspection: Present normal inspection and symmetric chest wall rise; Absent tenderness Respiratory Respiratory exam: Present normal lung sounds bilaterally; Absent respiratory distress, wheezes, stridor, accessory muscle use or prolonged expiratory phase Cardiovascular Cardiovascular exam: Present regular rate, normal rhythm and normal heart sounds; Absent bradycardia, tachycardia, irregular rhythm, systolic murmur or diastolic murmur Abdominal Exam Abdominal exam: Present soft and normal bowel sounds Extremities Exam Extremities exam: Present normal inspection and full ROM Expanded Upper Extremity Exam Forearm/Wrist exam: Present tenderness, swelling and other (Noted mild to moder ate tenderness on the left wrist with mild swelling no crepitation no deformity no redness no swelling ROM intact neurovascular intact); Absent abrasion, laceration, ecchymosis, deformity, crepitus, dislocation, erythema, tenderness over anatomical snuff box or pain with axial thumb loading Hand exam: Present tenderness, swelling and other (Noted mild to moderate tenderness on the palmar area of the left hand with mild swelling no crepitation no deformity no redness ROM intact neurovascular); Absent abrasion, laceration, skin avulsion, ecchymosis, deformity, crepitus, dislocation, erythema, amputation, nail avulsion or subungual hematoma Expanded Lower Extremity Exam Knee exam: Present tenderness, swelling and other (Noted moderate tenderness on the right anterior knee mild swelling no crepitation no deformity no redness no patellar tenderness no swelling or deformity ROM intact pulses were full and equal capillary refill less than 2 seconds sensory intact negative Will signs negative Homans signs no calf te); Absent abrasion, laceration, ecchymosis, deformity, crepitus, dislocation, erythema, effusion, anterior drawer sign, posterior draw sign, pain with valgus, laxity with valgus, pain with varus, laxity with varus or knee extension intact Back Exam Back exam: Present normal inspection and full ROM Neurological Exam Neurological exam: Present alert, oriented X3, CN II-XII intact, normal gait, reflexes normal and other (Awake alert oriented x 4 no focal deficit GCS 15/15); Absent motor sensory deficit Psychiatric Psychiatric exam: Present normal affect and normal mood Skin Skin exam: Present warm, dry, intact and normal color Course Quality Measures none Orders Category Date Time Status Apply knee immobilizer NOW Care 11/30/24 19:07 Active Splint / Immobilizer STAT Care 11/30/24 19:07 Active XR hand LT 2V Stat Exams 11/30/24 17:11 Completed XR knee RT 3V Stat Exams 11/30/24 17:11 Completed XR wrist LT 2V Stat Exams 11/30/24 17:11 Completed HYDROcodone*/APAP 5/325 [Bick[place] 5/325] Med 11/30/24 19:07 Discontinued 1 tab PO X1 ONE Vital Signs Vital signs: Vital Signs Temperature 99.1 F 11/30/24 16:57 Pulse Rate 91 11/30/24 16:57 Respiratory Rate 20 11/30/24 16:57 Blood Pressure 113/76 11/30/24 16:57 Pulse Oximetry (%) 98 11/30/24 16:57 Oxygen Delivery Method Room Air 11/30/24 16:57 Oxygen saturation is 98% in room air normal Extremity Injury MDM Narrative MDM Narrative:: This is a case of 34-year-old female with no medical history came in in the emergency room due to fall injury history of present illness started 1 hour prior to arrival in the emergency room patient tripped and fell at the store landed on her right knee left hand and left wrist patient now complaining of pain on the right knee left hand and left wrist patient denies any head neck chest or abdominal injury there is no loss of consciousness physical examination patient is awake alert oriented not in distress nontoxic looking neurological e xam is normal awake alert oriented x 4 no focal deficit GCS 15/15 patient gait is unstable due to pain on the right knee noted mild to moderate tenderness on the left wrist and left hand with mild swelling no crepitation no deformity no redness ROM intact neurovascular intact patient noted to have mild to moderate tenderness on the right anterior knee with knee joint effusion no prepatellar tenderness no crepitation no deformity ROM limited due to pain neurovascular intact x-ray showed no fracture no dislocation on the left left hand left wrist and right knee but with knee joint effusion and osteoarthritis patient was given knee immobilizer and prefab left wrist splint patient tolerated well neurovascular intact patient will continue RICE treatment at home patient will follow-up with PCP to be referred to Ortho for further evaluation and treatment of knee joint effusion and osteoarthritis of knee for possible MRI to rule out meniscus or ligament injury for any worsening symptoms or any emergent concern return precaution in the ER was advised patient was prescribed [place] for severe pain Patient was discharged with comfortable condition walking with stable gait. Patient verbalized no further complains explained diagnosis and answered patient question. Patient is comfortable with the proposed management plan including the need to follow up with his/her primary care physician and any specialist if applicable Discussed patient for any urgent condition or worsening sx, He/She needed to go to emergency room immediately or call 911. Patient acknowledge the responsibility to follow up as instructed and to monitor her/his symptoms. For any persistence of the symptoms for more than 3-5 days return precaution advised. Discussed the result of the test and was given printed discharge instruction Patient data External records reviewed:: [facility] previous records Clinical information provided by:: patient Social determinants that could affect healthcare access:: none Patient has the following chronic illnesses:: None How is presenting disease/condition affected by chronic disease/condition?: no chronic disease Evaluation data The following diagnostics were reviewed and interpreted by me:: radiology exam(s) Lab and/or radiology exams considered but not ordered:: Reviewed Interpretation Summary: Reviewed Medications / Prescriptions Medications or Prescriptions considered but not ordered:: Given Medication administrations:: Medication Administration History Discontinued Medications Hydrocodone Bitart/Acetaminophen (Hydrocodone/Apap 5/325 Tablet) 1 tab PO X1 ONE Stop: 11/30/24 19:08 Given Consultations Consultation(s) initiated? (list below): No Diagnosis Upper Extremity Injury Differential Diagnosis: other (Knee sprain hand sprain wrist pain) Most likely diagnosis given after review of the tests above:: Knee sprain hand sprain wrist pain Admission Indicated Admission indicated?: not indicated Explain why admission is indicated or not indicated:: Not indicated Admission Request Was there a request for admission?: No Admission Attestation Admission request attestation: Not indicated Disposition Plan Disposition Plan: Discharge Discharge Attestation Discharge Attestation: The patient and all family members were given an opportunity to ask questions and understood the discharge instructions. Discharge instructions specifically effects, indications for sooner follow up or return to the emergency department, and the expected course of current diagnosis. Patient condition: Stable Discharge Plan Plan Patient Disposition: HOME (Self Care) Patient condition on transfer: Stable Prescriptions/Referrals Prescriptions/Med Rec: New hydrocodone-acetaminophen 5-325 mg tablet 1 tab PO Q6H MDD max 4 tabs per day PRN (Reason: pain) Qty: 12 0RF No Action lisinopril 10 mg Tablet 10 mg PO QDAY hydrochlorothiazide 12.5 mg Tablet 25 mg PO QAM benzonatate 100 mg capsule 100 mg PO TID Qty: 14 0RF dicyclomine 20 mg tablet 20 mg PO TID PRN (Reason: abdominal pain) Qty: 20 0RF doxycycline monohydrate 100 mg capsule 100 mg PO BID Qty: 20 0RF diphenhydramine HCl 25 mg capsule 25 mg PO TID PRN (Reason: allergic reaction) Qty: 20 0RF atorvastatin 40 mg tablet 40 mg PO QDAY Patient Comments: TAKE 1 TABLET BY MOUTH EVERY DAY sertraline 100 mg tablet 100 mg PO QDAY Patient Comments: TAKE 1 TABLET BY MOUTH EVERY DAY Referrals: Mandy Negro FNP [Primary Care Provider] - In 1 week Problem List Clinical Impression: Fall, Sprain of hand, left, Left wrist sprain, Right knee sprain, Joint effusion of knee, Knee osteoarthritis Patient/Caregiver Discharge Instructions Education Materials: Knee Osteoarthritis, ED Fall with Uncertain Cause, ED Knee Immobilizer, ED Knee Effusion, ED Knee Sprain, ED Hand Sprain, ED Wrist Sprain, ED RICE Additional Instructions: Follow-up with your primary care physician in 2 days for reevaluation and to be referred to orthopedic surgeon for further evaluation and treatment of knee joint effusion and osteoarthritis of the right knee for possible MRI to rule out meniscus or ligament injury worsening symptoms or any emergent concerns such as numbness weakness tingling sensation return to the emergency room immediately or call 911 ice pack every 2 hours for 20 minutes for 24 hours then alternate with warm compress elevate to decrease swelling keep the splint and knee immobilizer in place until cleared by primary care physician take Tylenol Motrin as needed for mild to moderate pain and Bick[place] for severe pain Print Language: Tajik Stand Alone Forms: Irish Award Info., Patient Portal Info Letter PA/STAFF TRA[employer]ING [employer] DEVELOPMENT MANAGER Supervising Physician PA/NORMA Supervising Physician: Dr. Barbie Licea
[2024-11-30] MEDS: HYDROcodone/APAP 5/325 TABLET 1 TAB PO (19:40)
== END 2024-11-30 20:00 | disposition home or self-care (01) ==
PROVIDERS: Emergency Provider Family Medicine; PCP Nurse Practitioner
DX: S63.92XA Sprain of unspecified part of left wrist and hand, initial encounter (principal); S63.502A Unspecified sprain of left wrist, initial encounter; S83.91XA Sprain of unspecified site of right knee, initial encounter; M17.11 Unilateral primary osteoarthritis, right knee; W01.0XXA Fall on same level from slipping, tripping and stumbling without subsequent striking against object, initial encounter; Y92.512 Supermarket, store or market as the place of occurrence of the external cause
CPT/HCPCS: 29125; 73100; 73120; 73562; 99284; A9270

== ENCOUNTER 2024-12-03 19:54 | Emergency (ER) | payer MEDICAID, SELFPAY ==
[2024-12-03 19:55] VITALS: BMI 54.8
[2024-12-03 20:27] VITALS: BP 166/83; PULSE 73; RESP 17; TEMP 37.1; O2SAT 100
--- NOTE | 2024-12-03 20:39 | EDNOTE_ITS ---
Upper Extremity Injury RME/HPI General Chief Complaint: Fall Stated Complaint: SENT BY PCP FOR PAIN L WRIST, R KNEE Time Seen by Provider: 12/03/24 20:31 Arrival date/time: 12/03/24 19:54 34F with no significant PMH presents to ED with L wrist and R knee pain after falling several days ago. Patient was here initially and had normal XRs. Patient was sent for splint. Limitations: no limitations Related Data Home Medications ?Medication ?Instructions ?Recorded ?Confirmed hydrochlorothiazide 12.5 mg tablet 25 mg PO QAM 11/01/24 lisinopril 10 mg tablet 10 mg PO QDAY 11/08/2211/01 atorvastatin 40 mg tablet 40 mg PO QDAY 11/01/2411/01 sertraline 100 mg tablet 100 mg PO QDAY 11/01/2410/04 Previous Rx's ?Medication ?Instructions ?Recorded benzonatate 100 mg capsule 100 mg PO TID #14 caps 04/04 09/25 dicyclomine 20 mg tablet 20 mg PO TID PRN abdominal p ain 09/07/24 #20 tabs diphenhydramine HCl 25 mg capsule 25 mg PO TID PRN all ergic reaction 11/01/24 #20 caps doxycycline monohydrate 100 mg 100 mg PO BID #20 caps 11/01/24 capsule hydrocodone 5 mg-acetaminophen 325 1 tab PO Q6H PRN pa in #12 tabs 11/30/24 mg tablet Allergies Allergy/AdvReac Type Severity Reaction Status Date / Time amoxicillin Allergy Severe Rash Verified 12/03/24 19:58 cephalexin Allergy Severe Rash Verified 12/03/24 19:58 adhesive tape Allergy Intermediate Rash Verified 12/03/24 19:58 bee venom protein (honey bee) Allergy Intermediate Anaphylaxis Verified 12/03/24 19:58 Review of Systems Review of Systems Systems Reviewed: All systems reviewed, normal except as documented Musculoskeletal Musculoskeletal: Reports as per HPI and Reports arthralgias Past Medical History Past Medical History NEUROLOGIC: Positive Neurological Disorders and Transient Ischemic Attacks (TIA); Negative Seizures CARDIAC: Positive Cardiac Disorders and Hypertension; Negative Hypercholesterolemia or Congestive Heart Failure RESPIRATORY: Positive Asthma; Negative Chronic Obstructive Pulmonary Disease (COPD) GASTROINTESTINAL: Positive Gastrointestinal Disorders, Gall Bladder Disease, Colitis, Ulcerative Colitis, Ulcer and Obesity; Negative Hepatitis or Colorectal Cancer GENITOURINARY: Positive Kidney Stones; Negative Genitourinary Disorders, Renal Disease or Prostate Cancer REPRODUCTIVE: Positive Previous Pregnancies; Negative Breast Cancer or Testicular Cancer MUSCULOSKELETAL: Positive Musculoskeletal Disorders and Arthritis; Negative Bone Cancer ENDOCRINE: Positive Endocrine Disorders and Diabetes Mellitus Type 2 (pre); Negative Diabetes Mellitus Type 1 HEMATOLOGIC: Negative Blood Disorders, Anemia or Sickle Cell Disease PSYCHO/SOCIAL: Positive Anxiety OTHER HISTORY: Positive Hospitalization; Negative Autoimmune Disease, Down Syndrome, Developmental Delay, Shingles, Falls, Blood Transfusions, Blood Transfusion Reaction, Anesthesia Reactions, Organ Transplant, Chemotherapy, Radiation Therapy, Hyperbaric Therapy, MRSA, VRSA, Vancomycin-Resistant Enterococci, Human Immunodeficiency Virus (HIV), Chicken Pox, Measles, Mumps, Rubella (Hebrew Measles), Pertussis, Clostridium Difficile, Cancer, Breast Cancer, Cervical Cancer, Colorectal Cancer, Lung Cancer, Ovarian Cancer, Prostate Cancer or Testicular Cancer Family History FAMILY HISTORY: Positive Family Cardiac Disorders and Family Surgery; Negative Family Psychiatric Problems, Family Respiratory Disorders, Family Gastrointestinal Problems, Family Cancer or Family Anesthesia Reaction Surgical History SURGICAL: Positive Arthroscopy, Tubal Ligation and Section; Negative Organ Transplant Social History SMOKING STATUS: Never smoker SECOND HAND EXPOSURE: No SUBSTANCE USE: does not use ED Exam General Limitations: Present no limitations General appearance: Present alert and in no apparent distress Head Head exam: Present atraumatic Neck Neck exam: Present normal inspection, full ROM and trachea midline Chest Chest inspection: Present normal inspection and symmetric chest wall rise Expanded Upper Extremity Exam Forearm/Wrist exam: Absent full ROM (L) Neurological Exam Neurological exam: Present alert, oriented X3 and CN II-XII intact Psychiatric Psychiatric exam: Present normal affect and normal mood Skin Skin exam: Present warm, dry, intact and normal color Course Quality Measures none Orders Category Date Time Status Splint / Immobilizer STAT Care 12/03/24 20:31 Active Vital Signs Vital signs: Vital Signs Temperature 98.8 F 12/03/24 20:27 Pulse Rate 73 12/03/24 20:27 Respiratory Rate 17 12/03/24 20:27 Blood Pressure 166/83 H 12/03/24 20:27 Pulse Oximetry (%) 100 12/03/24 20:27 Oxygen Delivery Method Room Air 12/03/24 20:27 O2 at 100% on RA and WNLs Extremity Injury MDM Narrative MDM Narrative:: 34F with no significant PMH presents to ED with L wrist and R knee pain after falling several days ago. Patient was here initially and had normal XRs. Patient was sent for splint. Physical exam reveals limited ROM of L wrist. Gait normal. Patient is afebrile, calm, and alert. Given TANIA and splint. Patient data External records reviewed:: [facility] previous records Clinical information provided by:: patient Social determinants that could affect healthcare access:: none Patient has the following chronic illnesses:: none How is presenting disease/condition affected by chronic disease/condition?: no chronic disease Evaluation data The following diagnostics were reviewed and interpreted by me:: other (specify) (none) Lab and/or radiology exams considered but not ordered:: not ordered Interpretation Summary: n/a Medications / Prescriptions Medications or Prescriptions considered but not ordered:: not ordered Medication administrations:: n/a Consultations Consultation(s) initiated? (list below): No Diagnosis Upper Extremity Injury Differential Diagnosis: sprain and strain of wrist, fracture of wrist, finger sprain, dislocation of finger, Colles' fracture, fracture of hand and other (knee derangement ) Most likely diagnosis given after review of the tests above:: knee derangement and sprain and strain of wrist Admission Indicated Admission indicated?: not indicated Admission Request Was there a request for admission?: No Disposition Plan Disposition Plan: Discharge Discharge Attestation Discharge Attestation: The patient and all family members were given an opportunity to ask questions and understood the discharge instructions. Discharge instructions specifically effects, indications for sooner follow up or return to the emergency department, and the expected course of current diagnosis. Patient condition: Stable Discharge Plan Plan Patient Disposition: HOME (Self Care) Discharge Disposition comment: Stable Prescriptions/Referrals Prescriptions/Med Rec: No Action lisinopril 10 mg Tablet 10 mg PO QDAY hydrochlorothiazide 12.5 mg Tablet 25 mg PO QAM benzonatate 100 mg capsule 100 mg PO TID Qty: 14 0RF dicyclomine 20 mg tablet 20 mg PO TID PRN (Reason: abdominal pain) Qty: 20 0RF hydrocodone-acetaminophen 5-325 mg tablet 1 tab PO Q6H MDD max 4 tabs per day PRN (Reason: pain) Qty: 12 0RF doxycycline monohydrate 100 mg capsule 100 mg PO BID Qty: 20 0RF diphenhydramine HCl 25 mg capsule 25 mg PO TID PRN (Reason: allergic reaction) Qty: 20 0RF atorvastatin 40 mg tablet 40 mg PO QDAY Patient Comments: TAKE 1 TABLET BY MOUTH EVERY DAY sertraline 100 mg tablet 100 mg PO QDAY Patient Comments: TAKE 1 TABLET BY MOUTH EVERY DAY Problem List Clinical Impression: Sprain and strain of wrist, Internal derangement of knee Patient/Caregiver Discharge Instructions Education Materials: How Your Knee Works, ED Wrist Sprain Additional Instructions: Please follow-up with PCP within 24-48 hours and return immediately if symptoms worsen. If problem persists, recommend outpatient PT and/or MRI follow-up. In the meantime, rest, use ice/heat, and/or compression. Print Language: Upper Sorbian Stand Alone Forms: Patient Portal Info Letter PA/[employer] Supervising Physician PA/[employer] Supervising Physician: Dr. Dixon
--- NOTE | 2024-12-03 21:03 | PC.NURSE ---
R KNEE IMMOBILIZER APPLIED AT THIS TIME, PT TOLERATED WELL
== END 2024-12-03 21:07 | disposition home or self-care (01) ==
LOC: SERX 21:02
PROVIDERS: Emergency Provider Emergency Medicine; PCP Nurse Practitioner
DX: S63.502A Unspecified sprain of left wrist, initial encounter (principal); S66.812A Strain of other specified muscles, fascia and tendons at wrist and hand level, left hand, initial encounter; M23.91 Unspecified internal derangement of right knee; W19.XXXA Unspecified fall, initial encounter
CPT/HCPCS: 29125; 99284

== ENCOUNTER 2024-12-10 20:20 | Emergency (ER) | payer MEDICAID, SELFPAY ==
[2024-12-10 20:21] VITALS: BMI 54.8
[2024-12-10 20:47] VITALS: BP 128/90; PULSE 78; RESP 18; TEMP 37; O2SAT 99
[2024-12-10] MEDS: HYDROcodone/APAP 5/325 TABLET 1 TAB PO (21:01)
[2024-12-10] MEDS: DEXAMETHASONE SOD PHOS INJ 10 MG/ML VIAL PO (21:02)
--- NOTE | 2024-12-10 21:08 | EDNOTE_ITS ---
ED Extremity Problem RME/HPI General Chief complaint: Extremity Injury, Lower Stated complaint: LT WRIST/ RT KNEE INJURY Time Seen by Provider: 12/10/24 20:53 Arrival date/time: 12/10/24 20:20 34F with history of HTN, asthma, and psych presents to ED wanting pain meds for L wrist and R knee pain. Patient has been here twice for this with normal XRs. Patient can't see PCP until next week and Tylenol isn't helping. Patient can't take NSAIDs due being prone to stomach ulcers. Limitations: no limitations Related Data Home Medications ?Medication ?Instructions ?Recorded ?Confirmed hydrochlorothiazide 12.5 mg tablet 25 mg PO QAM 11/01/24 lisinopril 10 mg tablet 10 mg PO QDAY 11/08/2211/01 atorvastatin 40 mg tablet 40 mg PO QDAY 11/01/2411/01 sertraline 100 mg tablet 100 mg PO QDAY 11/01/2410/04 Previous Rx's ?Medication ?Instructions ?Recorded benzonatate 100 mg capsule 100 mg PO TID #14 caps 04/04 09/25 dicyclomine 20 mg tablet 20 mg PO TID PRN abdominal p ain 09/07/24 #20 tabs diphenhydramine HCl 25 mg capsule 25 mg PO TID PRN all ergic reaction 11/01/24 #20 caps doxycycline monohydrate 100 mg 100 mg PO BID #20 caps 11/01/24 capsule hydrocodone 5 mg-acetaminophen 325 1 tab PO Q6H PRN pa in #12 tabs 11/30/24 mg tablet Allergies Allergy/AdvReac Type Severity Reaction Status Date / Time amoxicillin Allergy Severe Rash Verified 12/03/24 19:58 cephalexin Allergy Severe Rash Verified 12/03/24 19:58 adhesive tape Allergy Intermediate Rash Verified 12/03/24 19:58 bee venom protein (honey bee) Allergy Intermediate Anaphylaxis Verified 12/03/24 19:58 Review of Systems Review of Systems Systems Reviewed: All systems reviewed, normal except as documented Musculoskeletal Musculoskeletal: Reports as per HPI and Reports arthralgias Past Medical History Past Medical History NEUROLOGIC: Positive Neurological Disorders and Transient Ischemic Attacks (TIA); Negative Seizures CARDIAC: Positive Cardiac Disorders and Hypertension; Negative Hypercholesterolemia or Congestive Heart Failure RESPIRATORY: Positive Asthma; Negative Chronic Obstructive Pulmonary Disease (COPD) GASTROINTESTINAL: Positive Gastrointestinal Disorders, Gall Bladder Disease, Colitis, Ulcerative Colitis, Ulcer and Obesity; Negative Hepatitis or Colorectal Cancer GENITOURINARY: Positive Kidney Stones; Negative Genitourinary Disorders, Renal Disease or Prostate Cancer REPRODUCTIVE: Positive Previous Pregnancies; Negative Breast Cancer or Testicular Cancer MUSCULOSKELETAL: Positive Musculoskeletal Disorders and Arthritis; Negative Bone Cancer ENDOCRINE: Positive Endocrine Disorders and Diabetes Mellitus Type 2 (pre); Negative Diabetes Mellitus Type 1 HEMATOLOGIC: Negative Blood Disorders, Anemia or Sickle Cell Disease PSYCHO/SOCIAL: Positive Anxiety OTHER HISTORY: Positive Hospitalization; Negative Autoimmune Disease, Down Syndrome, Developmental Delay, Shingles, Falls, Blood Transfusions, Blood Transfusion Reaction, Anesthesia Reactions, Organ Transplant, Chemotherapy, Radiation Therapy, Hyperbaric Therapy, MRSA, VRSA, Vancomycin-Resistant Enterococci, Human Immunodeficiency Virus (HIV), Chicken Pox, Measles, Mumps, Rubella ([place] Measles), Pertussis, Clostridium Difficile, Cancer, Breast Cancer, Cervical Cancer, Colorectal Cancer, Lung Cancer, Ovarian Cancer, Prostate Cancer or Testicular Cancer Family History FAMILY HISTORY: Positive Family Cardiac Disorders and Family Surgery; Negative Family Psychiatric Problems, Family Respiratory Disorders, Family Gastrointestinal Problems, Family Cancer or Family Anesthesia Reaction Surgical History SURGICAL: Positive Arthroscopy, Tubal Ligation and Section; Negative Organ Transplant Social History SMOKING STATUS: Never smoker SECOND HAND EXPOSURE: No SUBSTANCE USE: does not use ED Exam General Limitations: Present no limitations General appearance: Present alert and in no apparent distress Head Head exam: Present atraumatic Neck Neck exam: Present normal inspection, full ROM and trachea midline Chest Chest inspection: Present normal inspection and symmetric chest wall rise Expanded Upper Extremity Exam Forearm/Wrist exam: Present other (splint) Expanded Lower Extremity Exam Knee exam: Present other (R knee immobilizer) Neurological Exam Neurological exam: Present alert and oriented X3 Psychiatric Psychiatric exam: Present normal affect and normal mood Skin Skin exam: Present warm, dry, intact and normal color Course Quality Measures none Orders Category Date Time Status Dexamethasone Inj [Decadron Inj] Med 12/10/24 20:53 Discontinued 10 mg PO X1 ONE HYDROcodone*/APAP 5/325 [[place] 5/325] Med 12/10/24 20:53 Discontinued 1 tab PO X1 ONE Vital Signs Vital signs: Vital Signs Temperature 98.6 F 12/10/24 20:47 Pulse Rate 78 12/10/24 20:47 Respiratory Rate 18 12/10/24 20:47 Blood Pressure 128/90 H 12/10/24 20:47 Pulse Oximetry (%) 99 12/10/24 20:47 Oxygen Delivery Method Room Air 12/10/24 20:47 O2 at 99% on RA and WNLs Extremity Problem MDM Narrative MDM Narrative:: 34F with history of HTN, asthma, and psych presents to ED wanting pain meds for L wrist and R knee pain. Patient has been here twice for this with normal XRs. Patient can't see PCP until next week and Tylenol isn't helping. Patient can't take NSAIDs due being prone to stomach ulcers. Physical exam reveals splint on L wrist and knee immobilizer on R knee. Color and ROM of fingers are normal. Gait normal. Patient is afebrile, calm, and alert. Meds and recreational counselor given. Patient data External records reviewed:: [facility] previous records Clinical information provided by:: patient Social determinants that could affect healthcare access:: mental health Patient has the following chronic illnesses:: HTN, asthma, and psych How is presenting disease/condition affected by chronic disease/condition?: exacerbated by Evaluation data The following diagnostics were reviewed and interpreted by me:: other (specify) (none) Lab and/or radiology exams considered but not ordered:: not ordered Interpretation Summary: n/a Medications / Prescriptions Medications or Prescriptions considered but not ordered:: ordered Medication administrations:: Medication Administration History Discontinued Medications Hydrocodone Bitart/Acetaminophen (Hydrocodone/Apap 5/325 Tablet) 1 tab PO X1 ONE Stop: 12/10/24 20:54 Last Admin: 12/10/24 21:01 Dose: 1 tab Documented By: Dexamethasone Sodium Phosphate (Dexamethasone Sod Phos Inj 10 Mg/Ml Vial) 10 mg PO X1 ONE Stop: 12/10/24 20:54 Last Admin: 12/10/24 21:02 Dose: 10 mg Documented By: above Consultations Consultation(s) initiated? (list below): No Diagnosis Extremity Problem Differential Diagnosis: herpes zoster, gout, cellulitis, superficial thrombophlebitis, deep venous thrombosis of upper extremity, lower extremity edema, deep vein thrombosis of lower extremity and other (joint pain) Most likely diagnosis given after review of the tests above:: joint pain Admission Indicated Admission indicated?: not indicated Admission Request Was there a request for admission?: No Disposition Plan Disposition Plan: Discharge Discharge Attestation Discharge Attestation: The patient and all family members were given an opportunity to ask questions and understood the discharge instructions. Discharge instructions specifically effects, indications for sooner follow up or return to the emergency department, and the expected course of current diagnosis. Patient condition: Stable Discharge Plan Plan Patient Disposition: HOME (Self Care) Discharge Disposition comment: Stable Prescriptions/Referrals Prescriptions/Med Rec: No Action lisinopril 10 mg Tablet 10 mg PO QDAY hydrochlorothiazide 12.5 mg Tablet 25 mg PO QAM benzonatate 100 mg capsule 100 mg PO TID Qty: 14 0RF dicyclomine 20 mg tablet 20 mg PO TID PRN (Reason: abdominal pain) Qty: 20 0RF hydrocodone-acetaminophen 5-325 mg tablet 1 tab PO Q6H MDD max 4 tabs per day PRN (Reason: pain) Qty: 12 0RF doxycycline monohydrate 100 mg capsule 100 mg PO BID Qty: 20 0RF diphenhydramine HCl 25 mg capsule 25 mg PO TID PRN (Reason: allergic reaction) Qty: 20 0RF atorvastatin 40 mg tablet 40 mg PO QDAY Patient Comments: TAKE 1 TABLET BY MOUTH EVERY DAY sertraline 100 mg tablet 100 mg PO QDAY Patient Comments: TAKE 1 TABLET BY MOUTH EVERY DAY Problem List Clinical Impression: Joint pain Patient/Caregiver Discharge Instructions Education Materials: ED Arthralgia Additional Instructions: Please follow-up with PCP within 24-48 hours and return immediately if symptoms worsen. If problem persists, recommend outpatient PT and/or MRI follow-up. In the meantime, rest, use ice/heat, and/or compression. Print Language: Brazilian Stand Alone Forms: Patient Portal Info Letter CASIE/NORMA Supervising Physician CLARITA Supervising Physician: Dr. Dorsey
== END 2024-12-10 21:17 | disposition home or self-care (01) ==
LOC: SERX 21:10
PROVIDERS: Emergency Provider Emergency Medicine; PCP Nurse Practitioner
DX: M25.532 Pain in left wrist (principal); M25.561 Pain in right knee
CPT/HCPCS: 99283; J1100; A9270

== ENCOUNTER 2024-12-31 15:31 | Emergency (ER) | payer MEDICAID, SELFPAY ==
[2024-12-31 15:44] VITALS: BP 102/81; PULSE 127; RESP 19; TEMP 36.7; O2SAT 98; BMI 53.2
--- NOTE | 2024-12-31 15:54 | PD.EDWOUND ---
ED Wound/Laceration-RME/HPI General Chief Complaint: Wound/Laceration Stated Complaint: R THIGH LACERATON WITH METAL FENCE Time Seen by Provider: 12/31/24 15:42 Arrival date/time: 12/31/24 15:31 34-year-old female patient was brought in by family for evaluation regarding laceration to the right lateral thigh. Incident happened earlier today with sharp object, resulting into gaping laceration, no active bleeding noted. Patient is ambulatory. Tetanus vaccination is few months ago Related Data Home Medications ?Medication ?Instructions ?Recorded ?Confirmed hydrochlorothiazide 12.5 mg tablet 25 mg PO QAM 11/08/22 11/01/24 lisinopril 10 mg tablet 10 mg PO QDAY 11/08/22 11/01/24 atorvastatin 40 mg tablet 40 mg PO QDAY 11/01/24 11/01/24 sertraline 100 mg tablet 100 mg PO QDAY 11/01/24 11/01/24 Previous Rx's ?Medication ?Instructions ?Recorded benzonatate 100 mg capsule 100 mg PO TID #14 caps 04/20/24 dicyclomine 20 mg tablet 20 mg PO TID PRN abdominal pain 09/07/24 #20 tabs diphenhydramine HCl 25 mg capsule 25 mg PO TID PRN allergic reaction 11/01/24 #20 caps doxycycline monohydrate 100 mg 100 mg PO BID #20 caps 11/01/24 capsule hydrocodone 5 mg-acetaminophen 325 1 tab PO Q6H PRN pain #12 tabs 11/30/24 mg tablet ibuprofen 800 mg tablet 800 mg PO TID PRN pain #30 tabs 12/31/24 Allergies Allergy/AdvReac Type Severity Reaction Status Date / Time amoxicillin Allergy Severe Rash Verified 12/31/24 15:33 cephalexin Allergy Severe Rash Verified 12/31/24 15:33 adhesive tape Allergy Intermediate Rash Verified 12/31/24 15:33 bee venom protein (honey bee) Allergy Intermediate Anaphylaxis Verified 12/31/24 15:33 Review of Systems Review of Systems Narrative Review of Systems: Review of system reviewed and within normal limits except mentioned in HPI ED Exam Narrative Physical exam: VITAL SIGNS: Reviewed. GENERAL APPEARANCE: Alert and interactive, follows commands, no acute distress, HEAD AND FACE: Non-traumatic. ENT: PERRL, pink conjunctivitis, eyelid no trauma, Mucous membrane moist. NECK: Supple, nontender, no nuchal rigidity. RECTAL: Deferred. GENITAL: Deferred. NEUROLOGICAL: Gross motor function intact sensory function intact, Appropriate for age. MUSCULOSKELETAL: low back nontender, full range of motion. EXTREMITIES:+6 cm gaping laceration, right lateral thigh no active bleeding noted, full range of motion. SKIN: Color pink, dry, no rash, no lacerations, no abrasions, no contusions. LYMPHATICS: Deferred. Course Quality Measures none Orders Category Date Time Status Ketorolac Inj [Toradol Inj] Med 12/31/24 15:54 Discontinued 30 mg IM X1 ONE Lidocaine 1% 20 ml [Xylocaine 1% 20 ML] Med 12/31/24 15:54 Discontinued 20 ml INFL X1 ONE TET,DIP/PERT AC (Adult)-Tdap [Boostrix Adult (Tdap) Med 12/31/24 15:54 Discontinued Vacc] 0.5 ml IMI .ONCE ONE Vital Signs Vital signs: Vital Signs Temperature 98.1 F 12/31/24 15:44 Pulse Rate 127 H 12/31/24 15:44 Respiratory Rate 19 12/31/24 15:44 Blood Pressure 102/81 12/31/24 15:44 Pulse Oximetry (%) 98 12/31/24 15:44 PROCEDURES: Laceration Laceration 1: Site: lower extremity Side (If applicable): right Size (cm): 6 Description: linear Depth: simple, single layer Local Anesthetic: lidocaine 1% Amount of anesthesia used (mL): 20 Pre-repair: wound explored, irrigated extensively and deep structures intact Skin layer closed with: other (Shoshana) Wound / Laceration MDM Narrative MDM Narrative:: 34-year-old female patient was brought in by family for evaluation regarding laceration to the right lateral thigh. Incident happened earlier today with sharp object, resulting into gaping laceration, no active bleeding noted. Patient is ambulatory. Tetanus vaccination is few months ago. Repair and application of shoshana was done by me see procedure notes .s Patient appears nontoxic and hemodynamically stable .Decision to discharge the patient. The patient/family was given an opportunity to ask questions and understood their discharge instructions. Discharge instructions specifically included follow up provider and time frame, current and/or new medications and possible side effects, indications for sooner follow up or return to the emergency department, and the expected course of current diagnosis. Patient reports feeling better as well and giving evidence of significant clinical improvement, I believe patient is now a candidate for discharge. Patient data External records reviewed:: None Clinical information provided by:: patient Social determinants that could affect healthcare access:: none Patient has the following chronic illnesses:: None How is presenting disease/condition affected by chronic disease/condition?: exacerbated by Evaluation data The following diagnostics were reviewed and interpreted by me:: other (specify) (None) Lab and/or radiology exams considered but not ordered:: None Interpretation Summary: None Medications / Prescriptions Medications or Prescriptions considered but not ordered:: None Medication administrations:: Medication Administration History Discontinued Medications Diphtheria/Tetanus/Acell Pertussis (Diphth,Pertuss(Acell),Tet Vac 0.5 Ml Syr- Adult) 0.5 ml IMi .ONCE ONE Stop: 12/31/24 15:55 Last Admin: 12/31/24 16:26 Dose: Not Given Documented By: Non-Admin Reason: Not Given Ketorolac Tromethamine (Ketorolac Inj 30 Mg/Ml Vial) 30 mg IM X1 ONE Stop: 12/31/24 15:55 Last Admin: 12/31/24 16:12 Dose: 30 mg Documented By: Lidocaine HCl (Lidocaine Hcl 1% 20 Ml Vial) 20 ml INFL X1 ONE Stop: 12/31/24 15:55 Last Admin: 12/31/24 16:12 Dose: 20 ml Documented By: Toradol Consultations Consultation(s) initiated? (list below): No Diagnosis Wound Differential Diagnosis: laceration, abrasion and avulsion of skin Most likely diagnosis given after review of the tests above:: Thigh laceration Admission Indicated Admission indicated?: not indicated Admission Request Was there a request for admission?: No Disposition Plan Disposition Plan: Discharge Discharge Attestation Discharge Attestation: The patient was given an opportunity to ask questions and understood the discharge instructions. Discharge instructions specifically effects, indications for sooner follow up or return to the emergency department, and the expected course of current diagnosis. Patient condition: Stable Discharge Plan Plan Patient Disposition: HOME (Self Care) Discharge Disposition comment: Stable Prescriptions/Referrals Prescriptions/Med Rec: New ibuprofen 800 mg tablet 800 mg PO TID PRN (Reason: pain) Qty: 30 0RF No Action lisinopril 10 mg Tablet 10 mg PO QDAY hydrochlorothiazide 12.5 mg Tablet 25 mg PO QAM benzonatate 100 mg capsule 100 mg PO TID Qty: 14 0RF dicyclomine 20 mg tablet 20 mg PO TID PRN (Reason: abdominal pain) Qty: 20 0RF hydrocodone-acetaminophen 5-325 mg tablet 1 tab PO Q6H MDD max 4 tabs per day PRN (Reason: pain) Qty: 12 0RF doxycycline monohydrate 100 mg capsule 100 mg PO BID Qty: 20 0RF diphenhydramine HCl 25 mg capsule 25 mg PO TID PRN (Reason: allergic reaction) Qty: 20 0RF atorvastatin 40 mg tablet 40 mg PO QDAY Patient Comments: TAKE 1 TABLET BY MOUTH EVERY DAY sertraline 100 mg tablet 100 mg PO QDAY Patient Comments: TAKE 1 TABLET BY MOUTH EVERY DAY Referrals: Mandy Negro FNP [Primary Care Provider] - In 1 week Problem List Clinical Impression: Laceration of thigh Patient/Caregiver Discharge Instructions Discharge Activity: activity as tolerated Education Materials: ED Laceration: All Closures Additional Instructions: Thank you for the opportunity for serving you today. You are stable for discharged . You are advised to: Follow-up with your PCP in 1 to 2 days Return to ED for worsening of symptoms Increase oral fluids Take medication as prescribed Dressing with bacitracin as needed. For removal of shoshana in 7 to 10 days Print Language: Romansh Stand Alone Forms: Irish Award Info., Patient Portal Info Letter CASIE/NORMA Supervising Physician CASIE/NORMA Supervising Physician: MD Ariadne
[2024-12-31] MEDS: LIDOCAINE HCL 1% 20 ML VIAL INFL (16:12)
[2024-12-31] MEDS: KETOROLAC INJ 30 MG/ML VIAL IM (16:12)
== END 2024-12-31 16:47 | disposition home or self-care (01) ==
PROVIDERS: Emergency Provider Emergency Medicine; PCP Nurse Practitioner
DX: S71.111A Laceration without foreign body, right thigh, initial encounter (principal); W26.9XXA Contact with unspecified sharp object(s), initial encounter
CPT/HCPCS: 12002; 96372; 99282; J1885; J3490

== ENCOUNTER 2025-01-08 20:03 | Emergency (ER) | payer MEDICAID, SELFPAY ==
[2025-01-08 20:04] VITALS: BMI 51.7
[2025-01-08 20:21] VITALS: BP 137/96; PULSE 86; RESP 18; TEMP 36.8; O2SAT 99
--- NOTE | 2025-01-08 20:41 | EDNOTE_ITS ---
ED Wound/Laceration-RME/HPI General Chief Complaint: Wound Recheck / Suture Removal Stated Complaint: NEEDS ANTONIO REMOVED R THIGH Time Seen by Provider: 01/08/25 20:13 Source: patient, RN notes reviewed and old records reviewed Arrival date/time: 01/08/25 20:03 Mode of arrival: ambulatory Limitations: no limitations RME / HPI RME / HPI narrative: 34yof presents to ED for staple removal. Right thigh laceration repaired in ED 12/31/2024. Patient is asymptomatic and without complaint. Denies redness, swelling or drainage. Related Data Home Medications ?Medication ?Instructions ?Recorded ?Confirmed hydrochlorothiazide 12.5 mg tablet 25 mg PO QAM 11/01/24 lisinopril 10 mg tablet 10 mg PO QDAY 11/08/2211/01 atorvastatin 40 mg tablet 40 mg PO QDAY 11/01/2411/01 sertraline 100 mg tablet 100 mg PO QDAY 11/01/2410/04 Previous Rx's ?Medication ?Instructions ?Recorded benzonatate 100 mg capsule 100 mg PO TID #14 caps 04/04 09/25 dicyclomine 20 mg tablet 20 mg PO TID PRN abdominal p ain 09/07/24 #20 tabs diphenhydramine HCl 25 mg capsule 25 mg PO TID PRN all ergic reaction 11/01/24 #20 caps doxycycline monohydrate 100 mg 100 mg PO BID #20 caps 11/01/24 capsule hydrocodone 5 mg-acetaminophen 325 1 tab PO Q6H PRN pa in #12 tabs 11/30/24 mg tablet ibuprofen 800 mg tablet 800 mg PO TID PRN pain #30 t abs 12/31/24 Allergies Allergy/AdvReac Type Severity Reaction Status Date / Time amoxicillin Allergy Severe Rash Verified 01/08/25 20:08 cephalexin Allergy Severe Rash Verified 01/08/25 20:08 adhesive tape Allergy Intermediate Rash Verified 01/08/25 20:08 bee venom protein (honey bee) Allergy Intermediate Anaphylaxis Verified 01/08/25 20:08 Review of Systems Review of Systems Systems Reviewed: All systems reviewed, normal except as documented Integumentary/Breasts Comments: Reports laceration Past Medical History Past Medical History NEUROLOGIC: Positive Transient Ischemic Attacks (TIA) CARDIAC: Positive Hypertension RESPIRATORY: Positive Asthma GASTROINTESTINAL: Positive Ulcerative Colitis, Ulcer and Obesity GENITOURINARY: Positive Kidney Stones REPRODUCTIVE: Positive Previous Pregnancies MUSCULOSKELETAL: Positive Arthritis ENDOCRINE: Positive Diabetes Mellitus Type 2 (pre) PSYCHO/SOCIAL: Positive Anxiety Surgical History SURGICAL: Positive Arthroscopy, Tubal Ligation and Section Social History SMOKING STATUS: Never smoker SECOND HAND EXPOSURE: No SUBSTANCE USE: does not use ED Exam General Limitations: Present no limitations General appearance: Present alert, in no apparent distress and obese Head Head exam: Present atraumatic and normocephalic Eye Eye exam: Present normal appearance, PERRL and EOMI ENT ENT exam: Present normal exam and mucous membranes moist Neck Neck exam: Present normal inspection and full ROM Chest Chest inspection: Present normal inspection and symmetric chest wall rise Respiratory Respiratory exam: Present normal lung sounds bilaterally; Absent respiratory distress Cardiovascular Cardiovascular exam: Present regular rate and normal rhythm Extremities Exam Extremities exam: Present normal inspection and full ROM; Absent tenderness Neurological Exam Neurological exam: Present alert and oriented X3 Psychiatric Psychiatric exam: Present normal affect and normal mood Skin Skin exam: Present other (Well-healed laceration to right lateral thigh, antonio intact. No erythema, swelling or drainage) Course Quality Measures none Vital Signs Vital signs: Vital Signs Temperature 98.3 F 01/08/25 20:21 Pulse Rate 86 01/08/25 20:21 Respiratory Rate 18 01/08/25 20:21 Blood Pressure 137/96 H 01/08/25 20:21 Pulse Oximetry (%) 99 01/08/25 20:21 Oxygen Delivery Method Room Air 01/08/25 20:21 PROCEDURES: Procedure Comment Staple removal: 20 antonio removed from right thigh Good healing, no erythema or drainage Patient tolerated procedure well, condition improved. Wound / Laceration MDM Narrative MDM Narrative:: 34yof presents to ED for staple removal. Right thigh laceration repaired in ED 12/31/2024. Patient is asymptomatic and without complaint. Denies redness, swelling or drainage. [place] removed without complication, no evidence of infection. Stable for discharge, RTED precautions given. Patient data External records reviewed:: [facility] previous records (12/31/2024 ED visit for leg laceration) Clinical information provided by:: patient Social determinants that could affect healthcare access:: other (specify) (Poor access to healthcare, unemployed) Patient has the following chronic illnesses:: Obesity How is presenting disease/condition affected by chronic disease/condition?: uneffected by Evaluation data The following diagnostics were reviewed and interpreted by me:: other (specify) (None) Lab and/or radiology exams considered but not ordered:: None Interpretation Summary: na Medications / Prescriptions Medications or Prescriptions considered but not ordered:: No antibiotics recommended at this time Medication administrations:: None Consultations Consultation(s) initiated? (list below): No Diagnosis Wound Differential Diagnosis: other (Laceration, encounter for staple removal, cellulitis, abscess) Most likely diagnosis given after review of the tests above:: Staple removal Admission Indicated Admission indicated?: not indicated Admission Request Was there a request for admission?: No Disposition Plan Disposition Plan: Discharge Discharge Attestation Discharge Attestation: The patient and all family members were given an opportunity to ask questions and understood the discharge instructions. Discharge instructions specifically effects, indications for sooner follow up or return to the emergency department, and the expected course of current diagnosis. Patient condition: Stable Discharge Plan Plan Patient Disposition: HOME (Self Care) Patient condition on transfer: Stable Prescriptions/Referrals Prescriptions/Med Rec: No Action lisinopril 10 mg Tablet 10 mg PO QDAY hydrochlorothiazide 12.5 mg Tablet 25 mg PO QAM benzonatate 100 mg capsule 100 mg PO TID Qty: 14 0RF dicyclomine 20 mg tablet 20 mg PO TID PRN (Reason: abdominal pain) Qty: 20 0RF hydrocodone-acetaminophen 5-325 mg tablet 1 tab PO Q6H MDD max 4 tabs per day PRN (Reason: pain) Qty: 12 0RF ibuprofen 800 mg tablet 800 mg PO TID PRN (Reason: pain) Qty: 30 0RF doxycycline monohydrate 100 mg capsule 100 mg PO BID Qty: 20 0RF diphenhydramine HCl 25 mg capsule 25 mg PO TID PRN (Reason: allergic reaction) Qty: 20 0RF atorvastatin 40 mg tablet 40 mg PO QDAY Patient Comments: TAKE 1 TABLET BY MOUTH EVERY DAY sertraline 100 mg tablet 100 mg PO QDAY Patient Comments: TAKE 1 TABLET BY MOUTH EVERY DAY Problem List Clinical Impression: History of removal of antonio Patient/Caregiver Discharge Instructions Education Materials: ED Staple Removal, No Complication Print Language: Tamazight Stand Alone Forms: Irish Award Info., Patient Portal Info Letter PA/VIDEO GAME ANIMATOR Supervising Physician CASIE/NORMA Supervising Physician: Willian
== END 2025-01-08 21:27 | disposition home or self-care (01) ==
LOC: SERX 20:56
PROVIDERS: Emergency Provider Emergency Medicine; PCP Nurse Practitioner
DX: S71.111D Laceration without foreign body, right thigh, subsequent encounter (principal); X58.XXXD Exposure to other specified factors, subsequent encounter
CPT/HCPCS: 99281